=== PATIENT | male | born 1940 | race Caucasian/White ===

== ENCOUNTER 2018-05-21 00:28 | Outpatient (CLI) | payer MEDICARE, MEDICAID, SELFPAY ==
--- NOTE | 2018-05-21 12:59 | DI.CT_ITS ---
SYMPTOMS/DIAGNOSIS: RESTAGING LUNG CA, AP, SBRT, ELIZABETH, C34.[address]: Comparison is made with September,, from [facility]. There has been interval decrease in size of the previously noted left anterior upper lobe nodule, now with a diameter of 8 mm compared to 10 on the previous exam. A nodule seen slightly inferior to this level shows a significant decrease in size to 4 mm compared with 11 x 9 on the previous exam. There has been no significant change in a right lower lobe lesion, measured at 12 x 7 mm. No new abnormalities are identified. Severe underlying emphysematous changes are seen with a large bulla in both upper lobes, right greater than left. No pleural or pericardial effusions are seen. A small hiatal hernia, pneumobilia and right renal cysts are again noted. IMPRESSION: Overall interval decrease in size of previously noted pulmonary nodules. No new abnormalities are seen.
== END 2018-05-21 00:48 ==
PROVIDERS: PCP Nurse Practitioner Family; Visit Provider Radiology Radiation Oncology
DX: C34.12 Malignant neoplasm of upper lobe, left bronchus or lung (principal); J43.9 Emphysema, unspecified; R91.8 Other nonspecific abnormal finding of lung field
CPT/HCPCS: 71250

== ENCOUNTER 2019-01-10 01:08 | Outpatient (CLI) | payer MEDICARE, MEDICAID, SELFPAY ==
[2019-01-10 11:52] LABS: Abs Immature Grans 0.04 k/cumm (0.0-0.09); Absolute Basophil Count 0.02 k/cumm (0.0-0.2); Absolute Eosinophil Count 0.08 k/cumm (0.0-0.7); Absolute Lymphocyte Count 0.86 k/cumm (1.2-3.4); Absolute Monocyte Count 0.73 k/cumm (0.11-0.7); Absolute Neutrophil Count 7.19 k/cumm (1.2-6.7); Basophils % 0.2; Eosinophils % 0.9; HCT 51.5 % (40.0-50.0); HGB 16.5 g/dL (13.5-17.5); Immature Grans % 0.4; Lymphocytes % 9.6; Mean Corpuscular Hemoglobin 30.8 pg (27.0-33.0); Mean Corpuscular Volume 96.1 fL (80-95); Mean Platelet Volume 10.1 fL (8.0-11.0); Monocytes % 8.2; Neutrophils % 80.7; Platelet Count 176 x1000/uL (130-400); RBC 5.36 m/cumm (4.50-6.00); RBC Distribution Width 14.4 % (11.8-14.1); White Blood Cell Count 8.92 k/cumm (4.4-10.8)
--- NOTE | 2019-01-10 12:04 | DI.CT_ITS ---
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 There has been slight interval decrease vs stable size of previously noted nodule in the anterior left upper lobe, measuring 7 mm. The 4 mm nodule previously noted more inferiorly is no longer visible. The area of nodular scarring in the right lower lobe appears unchanged. No new abnormalities are seen. There is evidence of adenopathy, pleural or pericardial effusions or acute infiltrates. There are multi-focal areas of scarring. There are severe underlying emphysematous change of the large blebs in the upper lobes, right greater than left. The heart size is normal. Biliary air is again noted. There are right renal cysts. No suspicious bony lesions are identified. IMPRESSION: Stable size of bilateral pulmonary nodules. Severe underlying emphysematous change with large bullae.
[2019-01-10 12:09] LABS: ALT 23 U/L (12-78); AST 11 U/L (15-37); Albumin 3.1 g/dL (3.4-5.0); Alkaline Phosphatase 88 U/L (46-116); Anion Gap 9.5 mmol/L (3-11); BUN 21 mg/dL (7-18); Bilirubin, Total 0.9 mg/dL (0.2-1.0); CO2 29.5 mmol/L (21.0-32.0); Calcium 8.9 mg/dL (8.5-10.1); Chloride 103 mmol/L (98-107); Glucose 213 mg/dL (70-100); Potassium 4.2 mmol/L (3.5-5.1); Sodium 142 mmol/L (136-145); Total Protein 7.7 g/dL (6.4-8.2)
== END 2019-01-10 01:28 ==
PROVIDERS: PCP Nurse Practitioner Family; Visit Provider Nurse Practitioner
DX: C34.92 Malignant neoplasm of unspecified part of left bronchus or lung (principal); R91.8 Other nonspecific abnormal finding of lung field; J43.9 Emphysema, unspecified
CPT/HCPCS: 36415; 71250; 80053; 85025

== ENCOUNTER 2019-01-10 12:00 | Inpatient (IN) | payer MEDICARE, MEDICAID, SELFPAY ==
[2019-01-10] VITALS (45 sets, daily range): BP systolic 101–175; BP diastolic 39–115; PULSE 56–120; RESP 4–32; TEMP 36.5–36.9; O2SAT 93–98
--- NOTE | 2019-01-10 12:15 | ED.GENADUL_ITS ---
Discharge Plan Disposition Patient Disposition: [facility] INPATIENT Condition: Improving Discharge Details Chief Complaint: SOB Clinical Impression: COPD exacerbation, CO2 retention, SOB (shortness of breath) Primary Care Provider: [facility] Provider: Florencio Zaidi Home Meds and New Rx's Prescriptions: No Action simvastatin 10 mg Tablet 10 mg PO DAILY RF: 0 aspirin [Aspir-81] 81 mg Tablet,Delayed Release (Dr/Ec) 81 mg PO DAILY RF: 0 albuterol sulfate [Ventolin HFA] 90 mcg/actuation Hfa Aerosol Inhaler 2 puff INHALATION Q4H PRN PRNRF: 0 finasteride [Proscar] 5 mg Tablet 5 mg PO DAILY RF: 0 Symbicort 160-4.5 mcg/actuation Hfa Aerosol Inhaler 2 puff INHALATION DAILY RF: 0 Dexilant 60 mg Capsule,Biphase Delayed Releas 60 mg PO DAILY RF: 0 Medical Decision Making This is a 78-year-old male who is a notably poor historian who tells me he has no medical problems except for COPD, who infact has a history of severe COPD on 3-5 L of oxygen, history of a known pulmonary lesion that is being followed closely, previous AAA that has been successfully repaired, hypertension, high cholesterol, borderline diabetes, who was recently at [facility], discharged 2-1/2 weeks ago on steroids and Levaquin. He was admitted at that time for shortness of breath and COPD exacerbation. He has known history of chronic Pseudomonas colonization he was started on Levaquin for this. Patient states that when he finished his steroids and antibiotic 2 days ago he noticed a prompt return of his shortness of breath. He denies any history of PE or blood clot, stroke or heart attack. He denies any recent long trips, surgeries or procedures. Symptoms made worse with ambulation. He denies any chest pain, or chest heaviness. He denies any other complaints or modifying factors. Physical exam demonstrates coarse breath sounds throughout. He did get a CT scan noncontrast this morning for further evaluation of his chronic pulmonary nodule. Final read is not yet back. We will give duo nebs, steroids, evaluate for cardiac etiology although I feel that is less likely. Feels signs and symptoms are consistent with COPD. Currently on his 5 L he is not hypoxic at rest. We will do an ambulatory pulse ox and reassess. 1:26 PM On reassessment patient is doing somewhat better at this time. On 5 L of oxygen he appears stable, we did ambulate the patient roughly 15 to 20 feet where he had notable severe tachypnea, pursed breathing, and was very short of breath, however his oxygen status only got down to the low 90s. Took him a good 5 to 10 minutes to recuperate from that short event. Laboratory work-up is trickling back, no significant white count. D-dimer is elevated at 1000. Unable to age- adjusted. I did discuss CT imaging with the patient, he did have a Noncon CT today as part of his chronic work-up for his pulmonary nodule, but he has a allergy to contrast dye. The allergy the patient states was one time he had IV contrast and he felt short of breath. He had no rash, swelling, lesions, or other components. He states that at [place] he has since had a repeat CT scan with contrast with no problems whatsoever. We did discuss risks and benefits, including the further diagnostic capability but also potential reaction component, and the patient understands this. With no history of actual allergic reaction I do not feel that pretreatment is needed. Respecting the patient's request and with him fully understanding this the patient will be having CT scan to evaluate for any further pulmonary component. Including PE. 2:10 PM Rheumatoid work-up has returned, VBG demonstrates pH of 7.29, PCO2 is 66. Certainly does seem to count or take an acute component. Patient's oxygen remained stable at this time. CT scan with contrast demonstrates no evidence of pulmonary embolism per Dr. England. Notably severe emphysema, but no evidence of pneumothorax bleb or pneumonia. With the patient's notable work of breathing, as well as the acute component of his symptomatology, further supported by the VBG findings, we will start a mild trial of BiPAP. I do feel that admission is appropriate for the patient at this time. We will contact the hospitalist for this. 2:19 pm Discussed the case with Dr Merlos, he agrees with the assessment and plan. I have extensively reviewed the treatment plan with the patient. I have addressed all patient concerns at this time. I have also discussed the plan with the admitting physician and they agree with the current assessment and plan and have agreed to assume responsibility for the patient. All parties demonstrate verbal understanding and agreement with our assessment and plan at this time. EKG 1207 Rate would 15 [place] 142 QTc 440 QRS 88 sinus tachycardia, no significant ST elevations or depressions, mild PVCs, no significant Q waves. HPI General Date/Time Provider Initiated Documentation: 01/10/19 12:02 . HPI Narrative: This is a 78-year-old male with a past medical history of a AAA that was repaired in 2019 at [facility], severe COPD on 3-5 L of home oxygen regularly, chronic lung disease, history of lung cancer with a nodule in the left lung that is currently being regularly monitored with CT scans, high cholesterol, hypertension, borderline diabetes, who presents today for evaluation of shortness of breath. Roughly 2-1/2 weeks ago the patient was admitted to [facility] for shortness of breath and exacerbation of his chronic COPD. He was evaluated for a life 2000 device but unfortunately did not qualify secondary to power restrictions at his, and discharged with 14 days of steroids with taper, and Levaquin secondary to previous and chronic Pseudomonas colonization. He denies any previous intubation for his COPD. Patient states that he was doing well until his steroids and Levaquin stopped 2 days ago. Since then he has been notably short of breath. He denies any fever, or chills. He does have a chronic nonproductive cough. He denies any chest pain, chest heaviness, chest tightness. He denies any vomiting or diarrhea. He denies any other significant medication changes. He did have a negative CT perfusion and nuclear stress testing as performed last year which demonstrated no evidence of ischemic component, and no evidence of severe heart failure. Patient denies any recent weight gain or significant swelling. He denies any pain in his abdomen or his legs. He denies any weakness in his legs he denies any other complaints at this time. No other modifying factors. Related Data Home Medications Medication Instructions Recorded Confirmed albuterol sulfate [Ventolin HFA] 2 puff INHALATION Q4H PRN PRN 01/10/19 01/10/19 aspirin [Aspir-81] 81 mg PO DAILY 01/10/19 01/10/19 budesonide-formoterol [Symbicort] 2 puff INHALATION DAILY 01/10/19 01/10/19 dexlansoprazole [Dexilant] 60 mg PO DAILY 01/10/19 01/10/19 finasteride [Proscar] 5 mg PO DAILY 01/10/19 01/10/19 simvastatin 10 mg PO DAILY 01/10/19 01/10/19 Allergies Allergy/AdvReac Type Severity Reaction Status Date / Time fluticasone Allergy Unverified 01/10/19 12:29 [From Advair Diskus] Iodinated Contrast- Oral and Allergy Unverified 01/10/19 12:29 IV Dye salmeterol Allergy Unverified 01/10/19 12:29 [From Advair Diskus] General Stated Complaint: SOB KYLIE: 2 Review of Systems Review of Systems All systems reviewed & are unremarkable except as noted in HPI and below PFSH Medical History BPH (benign prostatic hyperplasia) (Chronic) COPD (chronic obstructive pulmonary disease) (Chronic) GERD (gastroesophageal reflux disease) (Chronic) Hypercholesteremia (Acute) Surgical History (Updated 01/10/19 @ 12:35 by Florencio Zaidi DO) S/P AAA repair (Acute) Social History Smoking/Tobacco Use Status: Former Tobacco Use Alcohol Intake: never Substance use type: does not use Do you feel safe at home: Yes Do you feel safe in your relationship?: Yes Exam Narrative Exam Narrative: 1.Const: Well-nourished, Well-developed, appearing stated age 2.Eyes: PERRL, no conjunctival injection, and symmetrical lids. 3.ENT: Atraumatic external nose and ears. Moist MM. Neck: Symmetric, trachea midline, No thyromegaly. 4.CVS: +S1/S2, No murmurs or gallops. Peripheral pulses 2+ and equal in all extremities. Brisk capillary refill in all extremities. 5.RESP: Unlabored respiratory effort. Decreased respiration throughout, coarse breath sounds throughout. Coarseness is equal bilaterally. 6.GI: Soft, Nontender/Nondistended, No hepatosplenomegaly. No guarding or rebound. No pulsatile abdominal mass. 7.MSK: Normocephalic/Atraumatic, Extremities w/o deformity or ttp No cyanosis or clubbing, Normal movement of all extremities. No significant pitting edema. 8.Skin: Warm, Dry. No rashes or lesions. 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 Sensation grossly intact, no focal neurologic deficits. 10.Psych: (AAO) x3. Appropriate mood and affect Course Vital Signs Temperature 36.9 C 01/10/19 12:05 Pulse 110 H 01/10/19 12:05 Respiratory Rate 28 H 01/10/19 12:05 Blood Pressure 175/77 H 01/10/19 12:05 Pulse Oximetry 96 01/10/19 12:05 Temperature 36.9 C 01/10/19 12:05 Temperature Source Temporal Artery Scan 01/10/19 12:05 Pulse 110 H 01/10/19 12:05 Respiratory Rate 28 H 01/10/19 12:05 Respiratory Effort Tripod 01/10/19 12:05 Blood Pressure 175/77 H 01/10/19 12:05 Pulse Oximetry 96 01/10/19 12:05 Oxygen Delivery Method Nasal Cannula 01/10/19 12:05 Oxygen Flow Rate 5 01/10/19 12:05
[2019-01-10] MEDS: methylPREDNISolone SUCC 125 MG VIAL (12:22)
[2019-01-10] MEDS: Albuterol/Ipratropium 3 ML UPD VIAL 9 ML UPD (12:22)
[2019-01-10 12:27] LABS: Abs Immature Grans 0.07 k/cumm (0.0-0.09); Absolute Basophil Count 0.01 k/cumm (0.0-0.2); Absolute Eosinophil Count 0.38 k/cumm (0.0-0.7); Absolute Monocyte Count 0.72 k/cumm (0.11-0.7); Absolute Neutrophil Count 6.34 k/cumm (1.2-6.7); Basophils % 0.1; Eosinophils % 4.6; HCT 52.9 % (40.0-50.0); HGB 16.6 g/dL (13.5-17.5); Immature Grans % 0.8; Lymphocytes % 9.6; Mean Corp. HGB Concentration 31.4 g/dL (32.0-36.0); Mean Corpuscular Hemoglobin 30.4 pg (27.0-33.0); Mean Corpuscular Volume 96.9 fL (80-95); Mean Platelet Volume 10.9 fL (8.0-11.0); Monocytes % 8.7; Neutrophils % 76.2; Platelet Count 159 x1000/uL (130-400); RBC 5.46 m/cumm (4.50-6.00); RBC Distribution Width 14.5 % (11.8-14.1); White Blood Cell Count 8.32 k/cumm (4.4-10.8)
--- NOTE | 2019-01-10 12:45 | NUR.NOTE ---
pt ambulatoed on 5l n/c 02 spo2 dropped to 94% at lowest maintianed at 97% pt denied an increased work of breathing although after amulatory at rest pt apeared to have increased resp rate and depth of breathing pt placed back on cardaic monitor after trial md made aware of pt results md at bedside for eval Nursing Note:
[2019-01-10 12:47] LABS: PTT Activated 19.7 sec (21.0-31.4); Prothrombin Time 9.9 sec (9.3-11.0)
[2019-01-10 13:04] LABS: D-Dimer 997 ng/mlFEU (<500)
--- NOTE | 2019-01-10 13:21 | DI.CT_ITS ---
SYMPTOMS/DIAGNOSIS: SHORTNESS OF BREATH, LUNG NODULES, ELEVATED D DIMER CTA FOR PULMONARY EMBOLISM: CT angiography was performed with multi slice acquisition and multi planar and 3D reconstruction. The pulmonary arteries are well opacified with IV contrast. No pulmonary emboli or aortic dissection is seen. There are pleural or pericardial effusions or acute infiltrates. There is severe underlying emphysematous change with large apical bullae, right greater than left. A 7 mm spiculated nodule is noted in the left upper lobe. There is also an area of linear spiculation in the right lower lobe. IMPRESSION: No evidence of pulmonary emboli. Stable pulmonary nodules.
[2019-01-10 13:27] LABS: ALT 23 U/L (12-78); AST 21 U/L (15-37); Albumin 2.9 g/dL (3.4-5.0); Alkaline Phosphatase 80 U/L (46-116); Anion Gap 5.7 mmol/L (3-11); BUN 22 mg/dL (7-18); Bilirubin, Total 0.9 mg/dL (0.2-1.0); CO2 33.3 mmol/L (21.0-32.0); CREATININE 1.18 mg/dL (0.70-1.30); Calcium 8.8 mg/dL (8.5-10.1); Chloride 103 mmol/L (98-107); Estimated GFR 59.55 (mL/min/1.73m2); Glucose 123 mg/dL (70-100); NT-proBNP 444 pg/mL; Potassium 4.9 mmol/L (3.5-5.1); Sodium 142 mmol/L (136-145); TSH (W/Ref FT4) 0.64 uIU/mL (0.36-3.74); Total Protein 7.5 g/dL (6.4-8.2)
[2019-01-10 13:28] LABS: Troponin I < 0.05 ng/mL (0.00-0.06)
[2019-01-10] MEDS: Omnipaque 350 MG/ML 100 ML BTL IJ (13:53)
[2019-01-10 13:58] LABS: BE (Venous) 5.1 mmol/L (-3-3); HCO3 (Venous) 32 mmol/L (22-28); O2 Sat (Venous) 64 % (70-80); TCO2 (Venous) 29 mmol/L (22-29); pH (Venous) 7.29 (7.32-7.43); pO2 (Venous) 37 mm/Hg (28-44)
[2019-01-10 14:05] LABS: pCO2 (Venous) 66 mm/Hg (34-47)
[2019-01-10] MEDS: Albuterol/Ipratropium 3 ML UPD VIAL (14:22)
[2019-01-10] MEDS: Albuterol/Ipratropium 3 ML UPD VIAL UPD ×2 (14:31→19:59)
--- NOTE | 2019-01-10 15:07 | HPE_ITS ---
Date of service: 01/10/19 Time of Service: 15:07 Assessment and Plan (1) COPD with acute exacerbation: Current visit: Yes Status: Acute Appears to be Severe COPD with Bullae by imaging. Recent hospitalizations and pseudomonas colonization. Mr. Mendez has undergone 2 recent and prolonged courses of antibiotic therapy (Pip-Jamarcus & Levofloxacin), along with lengthy steroid tapers. - CT reviewed and no evidence of infiltrates. Patient also without sputum production. Will hold off antibiotic therapy for now. - Initiate high dose IV Steroids, and maintain on frequent and standing duonebs, prn Xopenex, and Q12 inhaled Budesonide. - BiPAP as needed for comfort. - Monitor symptoms closely. (2) Bullous emphysema: Current visit: Yes Status: Acute (3) AAA (abdominal aortic aneurysm): Current visit: Yes Status: Acute S/p reported EVAR in 2016. On daily ASA, Statin. (4) Macular degeneration: Current visit: Yes Noted. (5) Lung nodule: Current visit: Yes Status: Acute 7 mm spiculated nodule in the ELIZABETH, and noted area of linear spiculation RLL. Following chronically and under surveillance and treatment. (6) DVT prophylaxis: Current visit: Yes Status: Acute SC Lovenox. (7) Advance directive on file: Current visit: Yes Status: Acute Full Code. History of Present Illness Chief Complaint: Dyspnea Narrative: 78 year old man with prior history of severe bullous Emphysema, being admitted from [facility] Emergency Department on 01/10 with a diagnosis of acute COPD Exacerbation. Mr. Mendez has a past history of Oxygen depended Significant Bullous COPD, with multiple previous hospitalizations including both in November and earlier this month at [facility]. His other history includes AAA s/p Endovascular Aneurysm Repair in 2016, kidney stones, Cataracts s/p extraction, GERD, and prior acute Cholangitis secondary to Gallstones. 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 The patient receives his care at [facility] in [facility] - hospitalized at [facility] between December 05 and again on the 01-27 of this month. He was treated with antibiotics, including Pip-Jamarcus in November and Levofloxacin earlier this month due to Pseudomonas Colonization, and was found to have a potential opacity by CT of the chest during his last hospitalization. He was also treated with steroid therapy. In fact, he just completed a 14 day course of treatment with both Levaquin and prednisone, and the day following completion began to experience worsening SOB. He denies any change in cough or any new sputum production, but is now severely dyspneic with minimal movement and despite 5L of home oxygen therapy. The patient had initially presented for his routine screening CT, but was so dyspneic that he was referred to the ED for evaluation. A repeat CTA was performed, and without evidence of PE, dissection, or infiltrate. His labs were essentially unremarkable, as was his ABG follow-up to original VBG. He was treated with IV Steroids and BiPAP for increased work of breathing. Given his worsening dyspnea and increased Oxygen requirement he was referred for admission for further evaluation and treatment. Review of Systems Review of Systems All systems reviewed & are unremarkable except as noted in HPI and below PFSH Medical History (Updated 01/10/19 @ 15:24 by Waqar Merlos MD) AAA (abdominal aortic aneurysm) (Acute) BPH (benign prostatic hyperplasia) (Chronic) Bullous emphysema (Acute) COPD (chronic obstructive pulmonary disease) (Chronic) GERD (gastroesophageal reflux disease) (Chronic) History of acute cholangitis (Acute) History of kidney stones (Acute) Hypercholesteremia (Acute) Lung nodule (Acute) Macular degeneration (Acute) Surgical History (Updated 01/10/19 @ 12:35 by Florencio Zaidi DO) S/P AAA repair (Acute) Social History (Updated 01/10/19 @ 15:38 by Waqar Merlos MD) Smoking/Tobacco Use Status: Former Tobacco Use Alcohol Intake: never Substance use type: does not use Do you feel safe at home: Yes Do you feel safe in your relationship?: Yes Additional Social history: Patient is a former podiatrist assistant, now retired. Prior alcohol reported, none currently. Quit tobacco 2 years ago, with with an approximate 120 pack-year history of smoking. Meds Home Medications Medication Instructions Recorded Confirmed Type albuterol sulfate [Ventolin HFA] 2 puff INHALATION Q4H PRN PRN 01/10/19 01/10/19 History aspirin [Aspir-81] 81 mg PO DAILY 01/10/19 01/10/19 History budesonide-formoterol [Symbicort] 2 puff INHALATION DAILY 01/10/19 01/10/19 History dexlansoprazole [Dexilant] 60 mg PO DAILY 01/10/19 01/10/19 History finasteride [Proscar] 5 mg PO DAILY 01/10/19 01/10/19 History simvastatin 10 mg PO DAILY 01/10/19 01/10/19 History Allergies Allergy/AdvReac Type Severity Reaction Status Date / Time fluticasone Allergy Unverified 01/10/19 12:29 [From Advair Diskus] salmeterol Allergy Unverified 01/10/19 12:29 [From Advair Diskus] Exam Narrative Exam Narrative: General: Patient appears tachypneic but comfortable, currently on BiPAP. AAOX3, NAD Neck: Supple CV: Regular, nontachycardic, S1S2, No rubs, murmurs, or gallops. Pulmonary: Significantly decreased breath sounds bilaterally, trace diffuse w heezing, mild rhochi Abdomen: + Bowel Sounds, soft, nontender, nondistended Vascular: No lower extremity edema Neurologic: CN II-XII grossly intact. No focal deficits. Psych: Normal mood and affect. Results Labs : 01/10/19 12:15 01/10/19 12:58 Laboratory Results - last 24 hr 01/10/19 01/10/19 01/10/19 12:15 12:15 12:15 WBC 8.32 RBC 5.46 Hgb 16.6 Hct 52.9 H MCV 96.9 H MCH 30.4 MCHC 31.4 L RDW 14.5 H Plt Count 159 MPV 10.9 Immature Gran % 0.8 Neutrophils % 76.2 Lymphocytes % 9.6 Monocytes % 8.7 Eosinophils % 4.6 Basophils % 0.1 Absolute Neutrophils 6.34 Absolute Lymphocytes 0.80 L Absolute Monocytes 0.72 H Absolute Eosinophils 0.38 Absolute Basophils 0.01 PT 9.9 INR 1.0 APTT 19.7 L D-Dimer 997 H VBG pH VBG pCO2 VBG pO2 VBG HCO3 VBG Total CO2 VBG O2 Saturation VBG Base Excess Sodium Cancelled Potassium Cancelled Chloride Cancelled Carbon Dioxide Cancelled Anion Gap Cancelled BUN Cancelled Creatinine Cancelled Estimated GFR/1.73 m2 Cancelled Glucose Cancelled Calcium Cancelled Total Bilirubin Cancelled AST Cancelled ALT Cancelled Alkaline Phosphatase Cancelled Troponin I Cancelled NT-Pro-B Natriuret Pep Cancelled Total Protein Cancelled Albumin Cancelled TSH Cancelled 01/10/19 01/10/19 12:58 13:20 WBC RBC Hgb Hct MCV MCH MCHC RDW Plt Count MPV Immature Gran % Neutrophils % Lymphocytes % Monocytes % Eosinophils % Basophils % Absolute Neutrophils Absolute Lymphocytes Absolute Monocytes Absolute Eosinophils Absolute Basophils PT INR APTT D-Dimer VBG pH 7.29 L VBG pCO2 66 H VBG pO2 37 VBG HCO3 32 H VBG Total CO2 29 VBG O2 Saturation 64 L VBG Base Excess 5.1 H Sodium 142 Potassium 4.9 Chloride 103 Carbon Dioxide 33.3 H Anion Gap 5.7 BUN 22 H Creatinine 1.18 Estimated GFR/1.73 m2 59.55 Glucose 123 H D Calcium 8.8 Total Bilirubin 0.9 AST 21 ALT 23 Alkaline Phosphatase 80 Troponin I < 0.05 NT-Pro-B Natriuret Pep 444 H Total Protein 7.5 Albumin 2.9 L TSH 0.64 Last Vital Signs Temp 36.9 C 01/10/19 12:05 Pulse 93 H 01/10/19 14:31 Resp 19 01/10/19 14:31 BP 175/77 H 01/10/19 12:05 Pulse Ox 95 01/10/19 14:31
[2019-01-10 15:29] LABS: BE 4.1 mmol/L (-3-3); HCO3 29 mmol/L (22-28); pCO2 51 mmHg (34-47); pO2 83 mmHg (83-108); sO2 96 % (94-98); tCO2 26 mmol/L (22-29)
[2019-01-10] MEDS: Enoxaparin 40 MG/0.4 ML SYR SC ×2 (15:31→18:50)
[2019-01-10 15:32] LABS: FIO2 30 %; Site Right Radial
[2019-01-10 15:33] LABS: pH 7.37 (7.35-7.45)
--- NOTE | 2019-01-10 15:59 | NUR.NOTE ---
pt resting in bed on bipap machine tolorating current settings well resp even unlabored no distress noted none stated Nursing Note:
[2019-01-10] MEDS: Budesonide 0.5 MG/2 ML UPD VIAL UPD (18:49)
[2019-01-10] MEDS: Pantoprazole 40 MG VIAL IVP (18:49)
[2019-01-10] MEDS: Normal Saline Flush 10 ML SYR ×2 (18:52→22:15)
[2019-01-10] MEDS: Simvastatin 10 MG TAB PO (20:00)
[2019-01-10] MEDS: methylPREDNISolone SUCC 125 MG VIAL 60 MG IVP (22:14)
[2019-01-11] VITALS (14 sets, daily range): BP systolic 121–139; BP diastolic 29–74; PULSE 64–97; RESP 4–21; TEMP 35.7–36.7; O2SAT 94–98
[2019-01-11] MEDS: Albuterol/Ipratropium 3 ML UPD VIAL UPD ×5 (04:57→20:37)
[2019-01-11] MEDS: methylPREDNISolone SUCC 125 MG VIAL 60 MG IVP ×3 (05:02→22:20)
[2019-01-11] MEDS: Normal Saline Flush 10 ML SYR ×2 (05:02→13:49)
[2019-01-11] MEDS: Budesonide 0.5 MG/2 ML UPD VIAL UPD ×2 (05:03→17:34)
[2019-01-11 07:53] LABS: Anion Gap 5.3 mmol/L (3-11); BUN 20 mg/dL (7-18); CO2 31.7 mmol/L (21.0-32.0); Chloride 100 mmol/L (98-107); Glucose 180 mg/dL (70-100); Magnesium 2.2 mg/dL (1.8-2.4); Potassium 4.6 mmol/L (3.5-5.1); Sodium 137 mmol/L (136-145)
[2019-01-11 07:57] LABS: Abs Immature Grans 0.03 k/cumm (0.0-0.09); Absolute Lymphocyte Count 0.26 k/cumm (1.2-3.4); Absolute Monocyte Count 0.14 k/cumm (0.11-0.7); Absolute Neutrophil Count 5.69 k/cumm (1.2-6.7); HCT 46.4 % (40.0-50.0); HGB 14.9 g/dL (13.5-17.5); Immature Grans % 0.5; Lymphocytes % 4.2; Mean Corp. HGB Concentration 32.1 g/dL (32.0-36.0); Mean Corpuscular Hemoglobin 30.4 pg (27.0-33.0); Mean Corpuscular Volume 94.7 fL (80-95); Mean Platelet Volume 10.1 fL (8.0-11.0); Monocytes % 2.3; Platelet Count 199 x1000/uL (130-400); RBC Distribution Width 13.9 % (11.8-14.1); White Blood Cell Count 6.12 k/cumm (4.4-10.8)
[2019-01-11] MEDS: Aspirin E.C. 81 MG TABEC PO (08:07)
[2019-01-11] MEDS: Dexlansoprazole 30 MG CAP 60 MG PO (08:07)
[2019-01-11] MEDS: Finasteride 5 MG TAB PO (08:07)
[2019-01-11 08:11] LABS: Procalcitonin < 0.1 ng/mL
--- NOTE | 2019-01-11 09:54 | PDOC.CMIN ---
- If Service Date Differs Date of service: 01/11/19 Time of Service: 09:54 Care Management Initial Assess REASON FOR HOSPITALIZATION:: COPD Exacerbation PAST MEDICAL HISTORY/PAST SURGICAL HISTORY:: Medical History: AAA (abdominal aortic aneurysm) (Acute). BPH (benign prostatic hyperplasia) (Chronic). Bullous emphysema (Acute). COPD (chronic obstructive pulmonary disease) (Chronic). GERD (gastroesophageal reflux disease) (Chronic). History of acute cholangitis (Acute). History of kidney stones (Acute). Hypercholesteremia (Acute). Lung nodule (Acute). Macular degeneration (Acute). Surgical History: S/P AAA repair (Acute) PREVIOUS FUNCTIONAL STATUS/SOCIAL/FAMILY SUPPORTS:: Ross lives in a single family home in [place], [place] with his and son. He has one other son who is also unmarried. No grandchildren. Maik is independent with all activities and ADLs. Because of macular degeneration, he states he can no longer cook or engage in some of the activities he used to enjoy. He states his is a great cook though and also has beautiful flower gardens. CURRENT FUNCTIONAL STATUS:: Ross was sitting up in bed when CM came to see him. He was pleasant and cooperative and engaged readily in conversation. He stated that he has been hospitalized 3 other times in the past few months for respiratory issues. All of the other admissions were at [facility]. He shared that he felt the care at [facility] was much better.He came to [facility] for a CT scan and felt ill and decided to go to the ED, which is how he came to be admitted here. He states he is feeling better already. He is on 3-5 L of nasal oxygen at home but receives no other services. ADVANCE DIRECTIVES:: None on file at [facility] Has patient been provided with information about the portal?: No Did the patient sign up for the portal?: No CODE STATUS:: Full Code INSURANCE COVERAGE / FINANCIAL ISSUES:: [employer]. Medicaid CURRENT HOME/COMMUNITY SERVICES/EQUIPMENT:: Home oxygen PRIMARY CARE PHYSICIAN:: None locally POTENTIAL DISCHARGE NEEDS:: Follow up with PCP and discharge plan of care PATIENT/FAMILY EDUCATION NEEDS:: Discharge plan, limitations, follow up plan, Ask Me Three. ANTICIPATED BARRIERS TO DISCHARGE:: none identified TRANSPORTATION:: via private vehicle with family when ready PLAN:: Ross is receiving supportive treatment for a COPD exacerbation. He will likely return home with no new services and a resumption of his home oxygen. he will follow up with his PCP and discharge plan of care. CM will continue to provide support to patient, family and identified discharge concerns and issues.
[2019-01-11] MEDS: Thiamine 100 MG TAB PO (12:40)
--- NOTE | 2019-01-11 15:11 | W.PM.PROGNOT ---
Date of Service Date of service: 01/11/19 Time of Service: 15:12 Assessment and Plan (1) COPD with acute exacerbation: Current visit: Yes Status: Acute At baseline, Severe COPD with Bullae. H/o pseudomonas colonization, 2 recent courses of antibiotics (Pip-Jamarcus & Levofloxacin), along with lengthy steroid tapers. - No evidence of acute infection now (procalcitonin/imaging negative). - Continue current dose of IV Steroids, duonebs, prn Xopenex, and Q12 inhaled Budesonide. - BiPAP as needed for comfort. (2) Bullous emphysema: Current visit: Yes Status: Acute As above (3) AAA (abdominal aortic aneurysm): Current visit: Yes Status: Acute S/p reported EVAR in 2016. On daily ASA, Statin. Follow up as outpatient. (4) Macular degeneration: Current visit: Yes Follow up as outpatient (5) Lung nodule: Current visit: Yes Status: Acute 7 mm spiculated nodule in the [facility], and noted area of linear spiculation RLL. Follow up as outpatient (6) DVT prophylaxis: Current visit: Yes Status: Acute SC Lovenox. (7) Advance directive on file: Current visit: Yes Status: Acute Full Code. Subjective Interval history since last seen: Mr Capone states he is feeling better than yesterday - specifically, he is less short of breath. Denies dizziness, chest pain, nausea/vomiting. Cough was productive just once today, but hasn't been since. Exam Narrative Exam Narrative: General: very pleasant elderly male, A&Ox3, pursed lip breathing while talking to me, appears mildly tachypneic HEENT: EOMI, MMM Heart: RRR, no m/r/g Lungs; wheezing on expiration B GI: abdomen is soft, nontender, nondistended Extremities: no e/c/c BLE's Objective Objective Clinical Data: Abnormal lab results 01/10/19 01/11/19 01/11/19 Range/Units 15:32 07:00 07:00 Absolute Lymphocytes 0.26 L (1.2-3.4) k/cumm pCO2 51 H (34-47) mmHg ABG HCO3 29 H (22-28) mmol/L ABG Base Excess 4.1 H (-3-3) mmol/L BUN 20 H (7-18) mg/dL Glucose 180 H (70-100) mg/dL Vital Signs Temperature 36.3 C L 01/11/19 13:50 Temperature Source Tympanic 01/11/19 13:50 Pulse 67 01/11/19 13:50 Pulse Rhythm Irregular 01/11/19 08:00 Pulse 88 01/10/19 15:45 Respiratory Rate 20 01/11/19 13:50 Respiratory Effort Labored 01/11/19 08:00 Respiratory Depth Deep 01/11/19 08:00 Respiratory Pattern Tachypnea 01/11/19 08:00 Blood Pressure 139/58 L 01/11/19 13:50 Blood Pressure Mean 73 01/10/19 15:45 Pulse Oximetry 96 01/11/19 13:50 Oxygen Delivery Method Nasal Cannula 01/11/19 13:50 Oxygen Flow Rate 4 01/11/19 13:50 Fraction of Inspired Oxygen (FIO2) 30 01/10/19 14:31 Pain Level 0 01/11/19 08:00 Intake & Output 01/10/19 01/11/19 01/11/19 23:59 11:59 23:59 Intake Total 1210 / 1450 240 / 1450 Output Total 400 / 400 625 / 1375 750 / 1375 Balance -400 / -400 585 / 75 -510 / 75 Weight 64.7 kg Intake: IV 10 Oral 1200 / 1440 240 / 1440 Output: Urine 400 / 400 625 / 1375 750 / 1375 Other: Urine Color Straw Light Mikki Yellow Light Mikki Urine Appearance Clear Clear Clear Urine Odor Normal Normal None Voiding Methods Urinal Urinal Urinal Laboratory Results WBC 6.12 k/cumm (4.4-10.8) 01/11/19 07:00 RBC 4.90 m/cumm (4.50-6.00) 01/11/19 07:00 Hgb 14.9 g/dL (13.5-17.5) 01/11/19 07:00 Hct 46.4 % (40.0-50.0) 01/11/19 07:00 MCV 94.7 fL (80-95) 01/11/19 07:00 MCH 30.4 pg (27.0-33.0) 01/11/19 07:00 MCHC 32.1 g/dL (32.0-36.0) 01/11/19 07:00 RDW 13.9 % (11.8-14.1) 01/11/19 07:00 Plt Count 199 x1000/uL (130-400) 01/11/19 07:00 MPV 10.1 fL (8.0-11.0) 01/11/19 07:00 Immature Gran % 0.5 01/11/19 07:00 93.0 01/11/19 07:00 4.2 01/11/19 07:00 2.3 01/11/19 07:00 0.0 01/11/19 07:00 0.0 01/11/19 07:00 Absolute Neutrophils 5.69 k/cumm (1.2-6.7) 01/11/19 07:00 Absolute Lymphocytes 0.26 k/cumm (1.2-3.4) L 01/11/19 07:00 Absolute Monocytes 0.14 k/cumm (0.11-0.7) 01/11/19 07:00 Absolute Eosinophils 0.00 k/cumm (0.0-0.7) 01/11/19 07:00 Absolute Basophils 0.00 k/cumm (0.0-0.2) 01/11/19 07:00 PT 9.9 sec (9.3-11.0) 01/10/19 12:15 INR 1.0 (0.9-1.1) 01/10/19 12:15 APTT 19.7 sec (21.0-31.4) L 01/10/19 12:15 997 ng/mlFEU (<500) H 01/10/19 12:15 Sample Site Right radial 01/10/19 15:32 pCO2 51 mmHg (34-47) H 01/10/19 15:32 pO2 83 mmHg (83-108) 01/10/19 15:32 O2 Saturation 96 % (94-98) 01/10/19 15:32 ABG pH 7.37 (7.35-7.45) 01/10/19 15:32 ABG HCO3 29 mmol/L (22-28) H 01/10/19 15:32 ABG Total CO2 26 mmol/L (22-29) 01/10/19 15:32 ABG Base Excess 4.1 mmol/L (-3-3) H 01/10/19 15:32 VBG pH 7.29 (7.32-7.43) L 01/10/19 13:20 VBG pCO2 66 mm/Hg (34-47) H 01/10/19 13:20 VBG pO2 37 mm/Hg (28-44) 01/10/19 13:20 VBG HCO3 32 mmol/L (22-28) H 01/10/19 13:20 VBG Total CO2 29 mmol/L (22-29) 01/10/19 13:20 VBG O2 Saturation 64 % (70-80) L 01/10/19 13:20 VBG Base Excess 5.1 mmol/L (-3-3) H 01/10/19 13:20 30 % 01/10/19 15:32 Sodium 137 mmol/L (136-145) 01/11/19 07:00 Potassium 4.6 mmol/L (3.5-5.1) 01/11/19 07:00 Chloride 100 mmol/L (98-107) 01/11/19 07:00 Carbon Dioxide 31.7 mmol/L (21.0-32.0) 01/11/19 07:00 5.3 mmol/L (3-11) 01/11/19 07:00 BUN 20 mg/dL (7-18) H 01/11/19 07:00 1.00 mg/dL (0.70-1.30) 01/11/19 07:00 >= 60.00 (mL/min/1.73m2) 01/11/19 07:00 Glucose 180 mg/dL (70-100) H 01/11/19 07:00 Calcium 9.0 mg/dL (8.5-10.1) 01/11/19 07:00 Magnesium 2.2 mg/dL (1.8-2.4) 01/11/19 07:00 0.9 mg/dL (0.2-1.0) 01/10/19 12:58 AST 21 U/L (15-37) 01/10/19 12:58 ALT 23 U/L (12-78) 01/10/19 12:58 80 U/L (46-116) 01/10/19 12:58 < 0.05 ng/mL (0.00-0.06) 01/10/19 12:58 NT-Pro-B Natriuret Pep 444 pg/mL (-299) H 01/10/19 12:58 7.5 g/dL (6.4-8.2) 01/10/19 12:58 2.9 g/dL (3.4-5.0) L 01/10/19 12:58 < 0.1 ng/mL 01/11/19 07:00 TSH 0.64 uIU/mL (0.36-3.74) 01/10/19 12:58
[2019-01-11] MEDS: Enoxaparin 40 MG/0.4 ML SYR SC (17:34)
[2019-01-11] MEDS: Simvastatin 10 MG TAB PO (20:40)
[2019-01-12] VITALS (16 sets, daily range): BP systolic 113–138; BP diastolic 65–76; PULSE 85–99; RESP 2–22; TEMP 36.1–36.8; O2SAT 88–98
[2019-01-12] MEDS: Albuterol/Ipratropium 3 ML UPD VIAL UPD ×6 (03:45→23:12)
[2019-01-12] MEDS: Normal Saline Flush 10 ML SYR IVP ×3 (06:05→21:16)
[2019-01-12] MEDS: methylPREDNISolone SUCC 125 MG VIAL 60 MG IVP (06:06)
[2019-01-12] MEDS: Budesonide 0.5 MG/2 ML UPD VIAL UPD ×2 (06:06→17:32)
[2019-01-12] MEDS: Dexlansoprazole 30 MG CAP 60 MG PO (07:24)
[2019-01-12 08:07] LABS: Abs Immature Grans 0.06 k/cumm (0.0-0.09); Absolute Lymphocyte Count 0.24 k/cumm (1.2-3.4); Absolute Monocyte Count 0.67 k/cumm (0.11-0.7); Basophils % 0.1; HGB 14.5 g/dL (13.5-17.5); Immature Grans % 0.3; Lymphocytes % 1.2; Mean Corp. HGB Concentration 32.2 g/dL (32.0-36.0); Mean Corpuscular Hemoglobin 30.7 pg (27.0-33.0); Mean Corpuscular Volume 95.1 fL (80-95); Mean Platelet Volume 10.4 fL (8.0-11.0); Monocytes % 3.4; Platelet Count 200 x1000/uL (130-400); RBC 4.73 m/cumm (4.50-6.00); White Blood Cell Count 19.77 k/cumm (4.4-10.8)
[2019-01-12 08:12] LABS: Absolute Basophil Count 0.02 k/cumm (0.0-0.2); Absolute Neutrophil Count 18.78 k/cumm (1.2-6.7)
[2019-01-12] MEDS: Aspirin E.C. 81 MG TABEC PO (08:26)
[2019-01-12] MEDS: Finasteride 5 MG TAB PO (08:26)
[2019-01-12] MEDS: Folic Acid 1 MG TAB PO (08:26)
[2019-01-12] MEDS: Thiamine 100 MG TAB PO (08:26)
[2019-01-12] MEDS: Multivitamin TAB 1 TAB PO (08:26)
[2019-01-12 08:32] LABS: BUN 28 mg/dL (7-18); CREATININE 1.01 mg/dL (0.70-1.30); Calcium 8.5 mg/dL (8.5-10.1); Chloride 98 mmol/L (98-107); Glucose 202 mg/dL (70-100); Magnesium 2.1 mg/dL (1.8-2.4); Potassium 5.4 mmol/L (3.5-5.1); Sodium 135 mmol/L (136-145)
--- NOTE | 2019-01-12 10:41 | CMPROGNOTE_ITS ---
- If Service Date Differs Date of service: 01/12/19 Time of Service: 10:41 Care Management Progress Note S/O: Ross was sitting up in bed during CM visit. He was opn and friendly and readily engaged with CM. Ross is feeling much, much better he asserts. He states he hopes to be able to go home soon, but understands that these things take time and he doesn't want to salazar it. Ross talked fondly about his again today. He states that it took him a while to get , but he took his time and found a good woman. They have been for 40 years. Respiratory Therapy has been working with Ross to try to get him set up with the [facility]. There are some electrical issues and missing smoke detectors in his home that need to be addressed before the unit can be brought in. CM will work with community resources tomorrow to try to get this taken care of. A: Ross is a 78 year old gentleman admitted to [facility] on 01/10/19 with a diagnosis of COPD exacerbation P:Ross is receiving supportive treatment for a COPD exacerbation. He will likely return home with no new services and a resumption of his home oxygen. he will follow up with his PCP and discharge plan of care. CM will continue to provide support to patient, family and identified discharge concerns and issues.
[2019-01-12] MEDS: methylPREDNISolone SUCC 40 MG VIAL IVP ×2 (14:17→21:16)
[2019-01-12 14:57] LABS: Anion Gap 4.6 mmol/L (3-11); BUN 30 mg/dL (7-18); CO2 31.4 mmol/L (21.0-32.0); CREATININE 1.29 mg/dL (0.70-1.30); Calcium 8.9 mg/dL (8.5-10.1); Chloride 98 mmol/L (98-107); Estimated GFR 53.73 (mL/min/1.73m2); Glucose 295 mg/dL (70-100); Potassium 5.3 mmol/L (3.5-5.1); Sodium 134 mmol/L (136-145)
--- NOTE | 2019-01-12 15:04 | W.PM.PROGNOT ---
Date of Service Date of service: 01/12/19 Time of Service: 15:04 Assessment and Plan (1) COPD with acute exacerbation: Current visit: Yes Status: Acute Improving. At baseline, Severe COPD with Bullae. H/o pseudomonas colonization, 2 recent courses of antibiotics (Pip-Jamarcus & Levofloxacin), along with lengthy steroid tapers. - No evidence of acute infection now (procalcitonin/imaging negative). - Start to taper steroids; continue scheduled duonebs, prn Xopenex, and Q12 inhaled Budesonide. - BiPAP as needed for comfort. The patient was apparently approved for Life 2000 via [employer] - however, his home does not have grounded outlets or smoke detectors. Will speak with care managers about any community resources that might be available to help fix the electrical situation at home so that the patient could get his respiratory equipment. (2) Bullous emphysema: Current visit: Yes Status: Acute As above (3) AAA (abdominal aortic aneurysm): Current visit: Yes Status: Acute S/p reported EVAR in 2016. On daily ASA, Statin. Follow up as outpatient. (4) Macular degeneration: Current visit: Yes Follow up as outpatient (5) Lung nodule: Current visit: Yes Status: Acute 7 mm spiculated nodule in the [facility], and noted area of linear spiculation RLL. Follow up as outpatient (6) DVT prophylaxis: Current visit: Yes Status: Acute SC Lovenox. (7) Advance directive on file: Current visit: Yes Status: Acute Full Code. Subjective Interval history since last seen: Mr Mendez states he feels a lot better today. He denies dizziness, chest pain, nausea, vomiting. Shortness of breath and wheezing are better. Cough remains nonproductive. Exam Narrative Exam Narrative: General: very pleasant elderly male, A&Ox3, no tachypnea observed while talking to me; I am not observing so much pursed lip breathing today HEENT: EOMI, MMM Heart: RRR, no m/r/g Lungs; wheezing on expiration B - improved GI: abdomen is soft, nontender, nondistended Extremities: no e/c/c BLE's Objective Objective Clinical Data: Abnormal lab results 01/12/19 01/12/19 Range/Units 07:30 07:30 WBC 19.77 H D (4.4-10.8) k/cumm MCV 95.1 H (80-95) fL Absolute Neutrophils 18.78 H (1.2-6.7) k/cumm Absolute Lymphocytes 0.24 L (1.2-3.4) k/cumm Sodium 135 L (136-145) mmol/L Potassium 5.4 H (3.5-5.1) mmol/L BUN 28 H (7-18) mg/dL Glucose 202 H (70-100) mg/dL Vital Signs Temperature 36.1 C L 01/12/19 13:36 Temperature Source Tympanic 01/12/19 13:36 Pulse 99 H 01/12/19 13:36 Pulse Rhythm Irregular 01/12/19 03:45 Pulse 88 01/10/19 15:45 Respiratory Rate 20 01/12/19 13:36 Respiratory Effort Accessory Muscle Use 01/12/19 03:45 Respiratory Depth Shallow 01/12/19 03:45 Respiratory Pattern Irregular 01/12/19 03:45 Blood Pressure 118/65 01/12/19 13:36 Blood Pressure Mean 73 01/10/19 15:45 Pulse Oximetry 94 L 01/12/19 13:36 Oxygen Delivery Method Nasal Cannula 01/12/19 13:36 Oxygen Flow Rate 5 01/12/19 13:36 Fraction of Inspired Oxygen (FIO2) 30 01/10/19 14:31 Pain Level 0 01/12/19 13:36 Intake & Output 01/11/19 01/12/19 01/12/19 23:59 11:59 23:59 Intake Total 480 / 1690 980 / 1500 520 / 1500 Output Total 1300 / 1925 1000 / 1300 300 / 1300 Balance -820 / -235 -20 / 200 220 / 200 Intake: IV Oral 480 / 1680 960 / 1480 520 / 1480 Output: Urine 1300 / 1925 1000 / 1300 300 / 1300 Other: Urine Color Yellow Yellow Yellow Urine Appearance Clear Clear Clear Urine Odor Normal Normal Normal Stool Size Moderate Stool Characteristics Soft Formed Brown Voiding Methods Urinal Urinal Toilet Laboratory Results WBC 19.77 k/cumm (4.4-10.8) H D 01/12/19 07:30 RBC 4.73 m/cumm (4.50-6.00) 01/12/19 07:30 Hgb 14.5 g/dL (13.5-17.5) 01/12/19 07:30 Hct 45.0 % (40.0-50.0) 01/12/19 07:30 MCV 95.1 fL (80-95) H 01/12/19 07:30 MCH 30.7 pg (27.0-33.0) 01/12/19 07:30 MCHC 32.2 g/dL (32.0-36.0) 01/12/19 07:30 RDW 14.0 % (11.8-14.1) 01/12/19 07:30 Plt Count 200 x1000/uL (130-400) 01/12/19 07:30 MPV 10.4 fL (8.0-11.0) 01/12/19 07:30 Immature Gran % 0.3 01/12/19 07:30 95.0 01/12/19 07:30 1.2 01/12/19 07:30 3.4 01/12/19 07:30 0.0 01/12/19 07:30 0.1 01/12/19 07:30 Absolute Neutrophils 18.78 k/cumm (1.2-6.7) H 01/12/19 07:30 Absolute Lymphocytes 0.24 k/cumm (1.2-3.4) L 01/12/19 07:30 Absolute Monocytes 0.67 k/cumm (0.11-0.7) 01/12/19 07:30 Absolute Eosinophils 0.00 k/cumm (0.0-0.7) 01/12/19 07:30 Absolute Basophils 0.02 k/cumm (0.0-0.2) 01/12/19 07:30 PT 9.9 sec (9.3-11.0) 01/10/19 12:15 INR 1.0 (0.9-1.1) 01/10/19 12:15 APTT 19.7 sec (21.0-31.4) L 01/10/19 12:15 997 ng/mlFEU (<500) H 01/10/19 12:15 Sample Site Right radial 01/10/19 15:32 pCO2 51 mmHg (34-47) H 01/10/19 15:32 pO2 83 mmHg (83-108) 01/10/19 15:32 O2 Saturation 96 % (94-98) 01/10/19 15:32 ABG pH 7.37 (7.35-7.45) 01/10/19 15:32 ABG HCO3 29 mmol/L (22-28) H 01/10/19 15:32 ABG Total CO2 26 mmol/L (22-29) 01/10/19 15:32 ABG Base Excess 4.1 mmol/L (-3-3) H 01/10/19 15:32 VBG pH 7.29 (7.32-7.43) L 01/10/19 13:20 VBG pCO2 66 mm/Hg (34-47) H 01/10/19 13:20 VBG pO2 37 mm/Hg (28-44) 01/10/19 13:20 VBG HCO3 32 mmol/L (22-28) H 01/10/19 13:20 VBG Total CO2 29 mmol/L (22-29) 01/10/19 13:20 VBG O2 Saturation 64 % (70-80) L 01/10/19 13:20 VBG Base Excess 5.1 mmol/L (-3-3) H 01/10/19 13:20 30 % 01/10/19 15:32 Sodium 135 mmol/L (136-145) L 01/12/19 07:30 Potassium 5.4 mmol/L (3.5-5.1) H 01/12/19 07:30 Chloride 98 mmol/L (98-107) 01/12/19 07:30 Carbon Dioxide 29.0 mmol/L (21.0-32.0) 01/12/19 07:30 8.0 mmol/L (3-11) 01/12/19 07:30 BUN 28 mg/dL (7-18) H 01/12/19 07:30 1.01 mg/dL (0.70-1.30) 01/12/19 07:30 >= 60.00 (mL/min/1.73m2) 01/12/19 07:30 Glucose 202 mg/dL (70-100) H 01/12/19 07:30 Calcium 8.5 mg/dL (8.5-10.1) 01/12/19 07:30 Magnesium 2.1 mg/dL (1.8-2.4) 01/12/19 07:30 0.9 mg/dL (0.2-1.0) 01/10/19 12:58 AST 21 U/L (15-37) 01/10/19 12:58 ALT 23 U/L (12-78) 01/10/19 12:58 80 U/L (46-116) 01/10/19 12:58 < 0.05 ng/mL (0.00-0.06) 01/10/19 12:58 NT-Pro-B Natriuret Pep 444 pg/mL (-299) H 01/10/19 12:58 7.5 g/dL (6.4-8.2) 01/10/19 12:58 2.9 g/dL (3.4-5.0) L 01/10/19 12:58 < 0.1 ng/mL 01/11/19 07:00 TSH 0.64 uIU/mL (0.36-3.74) 01/10/19 12:58
[2019-01-12] MEDS: Enoxaparin 40 MG/0.4 ML SYR SC (17:32)
[2019-01-12] MEDS: Simvastatin 10 MG TAB PO (20:27)
[2019-01-13] VITALS (14 sets, daily range): BP systolic 108–153; BP diastolic 65–91; PULSE 66–113; RESP 2–22; TEMP 35.7–37; O2SAT 91–95
[2019-01-13] MEDS: Albuterol/Ipratropium 3 ML UPD VIAL UPD ×5 (03:56→20:06)
[2019-01-13] MEDS: methylPREDNISolone SUCC 40 MG VIAL IVP (05:14)
[2019-01-13] MEDS: Normal Saline Flush 10 ML SYR IVP ×2 (05:14→09:10)
[2019-01-13] MEDS: Budesonide 0.5 MG/2 ML UPD VIAL UPD ×2 (05:15→18:34)
[2019-01-13 07:39] LABS: Abs Immature Grans 0.05 k/cumm (0.0-0.09); Absolute Basophil Count 0.01 k/cumm (0.0-0.2); Absolute Eosinophil Count 0.04 k/cumm (0.0-0.7); Absolute Monocyte Count 0.62 k/cumm (0.11-0.7); Absolute Neutrophil Count 13.88 k/cumm (1.2-6.7); Basophils % 0.1; Eosinophils % 0.3; HCT 45.2 % (40.0-50.0); HGB 14.6 g/dL (13.5-17.5); Immature Grans % 0.3; Lymphocytes % 1.7; Mean Corp. HGB Concentration 32.3 g/dL (32.0-36.0); Mean Corpuscular Hemoglobin 30.4 pg (27.0-33.0); Mean Platelet Volume 10.6 fL (8.0-11.0); Monocytes % 4.2; Neutrophils % 93.4; Platelet Count 174 x1000/uL (130-400); RBC 4.81 m/cumm (4.50-6.00); RBC Distribution Width 14.1 % (11.8-14.1); White Blood Cell Count 14.86 k/cumm (4.4-10.8)
[2019-01-13 07:40] LABS: Absolute Lymphocyte Count 0.25 k/cumm (1.2-3.4)
[2019-01-13 08:16] LABS: Anion Gap 9.9 mmol/L (3-11); BUN 28 mg/dL (7-18); CO2 29.1 mmol/L (21.0-32.0); CREATININE 1.08 mg/dL (0.70-1.30); Calcium 8.9 mg/dL (8.5-10.1); Chloride 99 mmol/L (98-107); Glucose 238 mg/dL (70-100); Magnesium 2.4 mg/dL (1.8-2.4); Sodium 138 mmol/L (136-145)
[2019-01-13] MEDS: Dexlansoprazole 30 MG CAP 60 MG PO (09:11)
[2019-01-13] MEDS: Multivitamin TAB 1 TAB PO (09:11)
[2019-01-13] MEDS: Finasteride 5 MG TAB PO (09:11)
[2019-01-13] MEDS: Thiamine 100 MG TAB PO (09:11)
[2019-01-13] MEDS: Folic Acid 1 MG TAB PO (09:11)
[2019-01-13] MEDS: Aspirin E.C. 81 MG TABEC PO (09:11)
--- NOTE | 2019-01-13 10:31 | PDOC.CMPRO ---
- If Service Date Differs Date of service: 01/13/19 Time of Service: 10:31 Care Management Progress Note S/O: Ross was sitting up in bed when CM came to visit. He had been trying to find someone who could take pictures of the electrical outlets in his home to facilitate the instillation of his new Life 200 breathing machine. Neither Ross or his wiife have a cell phone or camera nor do they have any close friends or family who can help out. Attempts were made to contact a neighbor but she was reluctant to go to their home. CM has sent a referral to [facility] to coordinate the repairs. A: Ross is a 78 year old gentleman admitted to [facility] on 01/10/19 with a diagnosis of COPD exacerbation P:Ross is receiving supportive treatment for a COPD exacerbation. He will likely return home with no new services and a resumption of his home oxygen. he will follow up with his PCP and discharge plan of care. CM will continue to provide support to patient, family and identified discharge concerns and issues.
--- NOTE | 2019-01-13 14:12 | PHARADMIT ---
Addendum entered by Marco Plascencia III 01/14/19 14:15: Pharmacy Note Subjective MD notes patient is at baseline re: COPD. No infection noted (Procalcitonin-neg). Objective VS-OK HR-118 [place], SCr, H&H,Plts-OK WBC-12.77 Wgt-68.8 kg Last BM 01/12 Assessment Steroids are tapering.CIWA Zero. Only taking CIWA protocol vits. Plan Patients home needs grounded outlets to support respiratory equipment needed for his discharge. CM working on solving this. Possibel discharge home later today. Original Note: Admission Pharmacy Clinical Review COPD EXACERBATION Code Status Full Code Current Weight Wgt-65.3 kg Renally Cleared and Narrow Therapeutic Index Meds CrCl~ 44 mL/min Meds-OK QTc Value / Action Taken QTc-440 na BP Control, Fever BP- 130/73 Tmax- 36.8C Electrolytes reviewed Na- 138 K+5.0 Mag- 2.4 DVT Prophylaxis Lovenox 40mg, ASA-ec Opiate Usage / Scheduled Bowel Regimen Ordered No Yes Plt/SCr for Heparin / Enoxaparin Plts-174 SCr-1.08 INR for Warfarin inr-1.0 H/H stable, WBC/Bands H&H- 14.6/45.2 WBC- 14.86 Antibiotic appropriateness none Cultures and Sensitivities none Surgical ABX d/c within 24 hr NA DM control / Insulin Dosing BG- 238 Heart Failure (Check EF%) (GISELA's, B-Block, Diuretics) NONE IV to PO Switch na Home Meds Reviewed Yes Home Meds Not Ordered Ordered Comments
[2019-01-13] MEDS: Mylanta Suspension 30 ML CUP PO (16:19)
--- NOTE | 2019-01-13 16:25 | W.PM.PROGNOT ---
Date of Service Date of service: 01/13/19 Time of Service: 16:25 Assessment and Plan (1) Chest pain: Current visit: Yes Status: Acute EKG with NSR, HR 97, no acute ischemia. Will trial nitroglycerin, trend troponins, put the patient on tele. I do see that the patient has a AAA - if pain persists, we will rule out dissection. (2) COPD with acute exacerbation: Current visit: No Status: Acute Improving. At baseline, Severe COPD with Bullae. H/o pseudomonas colonization, 2 recent courses of antibiotics (Pip-Jamarcus & Levofloxacin), along with lengthy steroid tapers. - No evidence of acute infection now (procalcitonin/imaging negative). - Continue steroid taper (convert to PO); continue scheduled duonebs, prn Xopenex, and Q12 inhaled Budesonide. The patient was apparently approved for Life [employer] via [employer] - however, his home does not have grounded outlets or smoke detectors. Will speak with care managers about any community resources that might be available to help fix the electrical situation at home so that the patient could get his respiratory equipment. (3) Bullous emphysema: Current visit: No Status: Acute As above (4) AAA (abdominal aortic aneurysm): Current visit: No Status: Acute S/p reported EVAR in 2016. On daily ASA, Statin. as above (5) Macular degeneration: Current visit: No Follow up as outpatient (6) Lung nodule: Current visit: No Status: Acute 7 mm spiculated nodule in the [facility], and noted area of linear spiculation RLL. Follow up as outpatient (7) DVT prophylaxis: Current visit: No Status: Acute SC Lovenox. (8) Advance directive on file: Current visit: No Status: Acute Full Code. Subjective Interval history since last seen: Patient complains of substernal chest pain that started 15 minutes ago - stabbing. Received breathing treatment 1 hour ago. Breathing is actually better and he does not feel short of breath. Denies dizziness, shortness of breath, nausea. VSS - but the heart rate is irregular. EKG is being obtained. Exam Narrative Exam Narrative: General: very pleasant elderly male, A&Ox3, appears mildly anxious, very minimally tachypneic HEENT: EOMI, MMM Heart: Distant heart sounds - irregular Lungs; wheezing on expiration B - improved GI: abdomen is soft, nontender, nondistended Extremities: no e/c/c BLE's Objective Objective Clinical Data: Abnormal lab results 01/13/19 01/13/19 Range/Units 06:40 07:50 WBC 14.86 H (4.4-10.8) k/cumm Absolute Neutrophils 13.88 H (1.2-6.7) k/cumm Absolute Lymphocytes 0.25 L (1.2-3.4) k/cumm BUN 28 H (7-18) mg/dL Glucose 238 H (70-100) mg/dL Vital Signs Temperature 35.7 C L 01/13/19 11:49 Temperature Source Tympanic 01/13/19 11:49 Pulse 89 01/13/19 15:48 Pulse Rhythm Regular 01/13/19 15:00 Pulse 88 01/10/19 15:45 Respiratory Rate 22 01/13/19 15:48 Respiratory Effort Pursed Lip 01/13/19 15:00 Respiratory Depth Normal 01/13/19 15:00 Respiratory Pattern Normal 01/13/19 15:00 Blood Pressure 130/73 01/13/19 11:49 Blood Pressure Mean 73 01/10/19 15:45 Pulse Oximetry 93 L 01/13/19 15:48 Oxygen Delivery Method Nasal Cannula 01/13/19 15:48 Oxygen Flow Rate 3 01/13/19 15:48 Fraction of Inspired Oxygen (FIO2) 30 01/10/19 14:31 Pain Level 3 01/13/19 11:49 Intake & Output 01/12/19 01/13/19 01/13/19 23:59 11:59 23:59 Intake Total 830 / 1810 920 / 1280 360 / 1280 Output Total 1550 / 2550 1300 / 1800 500 / 1800 Balance -720 / -740 -380 / -520 -140 / -520 Weight 65.3 kg Intake: IV Oral 820 / 1780 900 / 1260 360 / 1260 Output: Urine 1550 / 2550 1300 / 1800 500 / 1800 Other: Urine Color Yellow Pale Pale Yellow Urine Appearance Clear Clear Clear Urine Odor Normal Normal Stool Size Smear Stool Characteristics Soft Voiding Methods Urinal Urinal Urinal Laboratory Results WBC 14.86 k/cumm (4.4-10.8) H 01/13/19 06:40 RBC 4.81 m/cumm (4.50-6.00) 01/13/19 06:40 Hgb 14.6 g/dL (13.5-17.5) 01/13/19 06:40 Hct 45.2 % (40.0-50.0) 01/13/19 06:40 MCV 94.0 fL (80-95) 01/13/19 06:40 MCH 30.4 pg (27.0-33.0) 01/13/19 06:40 MCHC 32.3 g/dL (32.0-36.0) 01/13/19 06:40 RDW 14.1 % (11.8-14.1) 01/13/19 06:40 Plt Count 174 x1000/uL (130-400) 01/13/19 06:40 MPV 10.6 fL (8.0-11.0) 01/13/19 06:40 Immature Gran % 0.3 01/13/19 06:40 93.4 01/13/19 06:40 1.7 01/13/19 06:40 4.2 01/13/19 06:40 0.3 01/13/19 06:40 0.1 01/13/19 06:40 Absolute Neutrophils 13.88 k/cumm (1.2-6.7) H 01/13/19 06:40 Absolute Lymphocytes 0.25 k/cumm (1.2-3.4) L 01/13/19 06:40 Absolute Monocytes 0.62 k/cumm (0.11-0.7) 01/13/19 06:40 Absolute Eosinophils 0.04 k/cumm (0.0-0.7) 01/13/19 06:40 Absolute Basophils 0.01 k/cumm (0.0-0.2) 01/13/19 06:40 PT 9.9 sec (9.3-11.0) 01/10/19 12:15 INR 1.0 (0.9-1.1) 01/10/19 12:15 APTT 19.7 sec (21.0-31.4) L 01/10/19 12:15 997 ng/mlFEU (<500) H 01/10/19 12:15 Sample Site Right radial 01/10/19 15:32 pCO2 51 mmHg (34-47) H 01/10/19 15:32 pO2 83 mmHg (83-108) 01/10/19 15:32 O2 Saturation 96 % (94-98) 01/10/19 15:32 ABG pH 7.37 (7.35-7.45) 01/10/19 15:32 ABG HCO3 29 mmol/L (22-28) H 01/10/19 15:32 ABG Total CO2 26 mmol/L (22-29) 01/10/19 15:32 ABG Base Excess 4.1 mmol/L (-3-3) H 01/10/19 15:32 VBG pH 7.29 (7.32-7.43) L 01/10/19 13:20 VBG pCO2 66 mm/Hg (34-47) H 01/10/19 13:20 VBG pO2 37 mm/Hg (28-44) 01/10/19 13:20 VBG HCO3 32 mmol/L (22-28) H 01/10/19 13:20 VBG Total CO2 29 mmol/L (22-29) 01/10/19 13:20 VBG O2 Saturation 64 % (70-80) L 01/10/19 13:20 VBG Base Excess 5.1 mmol/L (-3-3) H 01/10/19 13:20 30 % 01/10/19 15:32 Sodium 138 mmol/L (136-145) 01/13/19 07:50 Potassium 5.0 mmol/L (3.5-5.1) 01/13/19 07:50 Chloride 99 mmol/L (98-107) 01/13/19 07:50 Carbon Dioxide 29.1 mmol/L (21.0-32.0) 01/13/19 07:50 9.9 mmol/L (3-11) 01/13/19 07:50 BUN 28 mg/dL (7-18) H 01/13/19 07:50 1.08 mg/dL (0.70-1.30) 01/13/19 07:50 >= 60.00 (mL/min/1.73m2) 01/13/19 07:50 Glucose 238 mg/dL (70-100) H 01/13/19 07:50 Calcium 8.9 mg/dL (8.5-10.1) 01/13/19 07:50 Magnesium 2.4 mg/dL (1.8-2.4) 01/13/19 07:50 0.9 mg/dL (0.2-1.0) 01/10/19 12:58 AST 21 U/L (15-37) 01/10/19 12:58 ALT 23 U/L (12-78) 01/10/19 12:58 80 U/L (46-116) 01/10/19 12:58 < 0.05 ng/mL (0.00-0.06) 01/10/19 12:58 NT-Pro-B Natriuret Pep 444 pg/mL (-299) H 01/10/19 12:58 7.5 g/dL (6.4-8.2) 01/10/19 12:58 2.9 g/dL (3.4-5.0) L 01/10/19 12:58 < 0.1 ng/mL 01/11/19 07:00 TSH 0.64 uIU/mL (0.36-3.74) 01/10/19 12:58
[2019-01-13] MEDS: Aspirin E.C. 325 MG TABEC PO (16:37)
[2019-01-13 17:30] LABS: Troponin I < 0.05 ng/mL (0.00-0.06)
[2019-01-13] MEDS: Enoxaparin 40 MG/0.4 ML SYR SC (18:34)
[2019-01-13] MEDS: Simvastatin 10 MG TAB PO (20:06)
[2019-01-13] MEDS: predniSONE 20 MG TAB 40 MG PO (20:06)
[2019-01-13 22:40] LABS: Troponin I < 0.05 ng/mL (0.00-0.06)
[2019-01-14] VITALS (15 sets, daily range): BP systolic 116–147; BP diastolic 63–82; PULSE 68–118; RESP 1–28; TEMP 36.4–36.9; O2SAT 88–108
[2019-01-14] MEDS: Albuterol/Ipratropium 3 ML UPD VIAL UPD ×6 (03:35→23:16)
[2019-01-14] MEDS: Budesonide 0.5 MG/2 ML UPD VIAL UPD ×2 (05:36→17:28)
[2019-01-14 07:43] LABS: Abs Immature Grans 0.03 k/cumm (0.0-0.09); Absolute Monocyte Count 0.47 k/cumm (0.11-0.7); HCT 45.9 % (40.0-50.0); HGB 14.6 g/dL (13.5-17.5); Immature Grans % 0.2; Lymphocytes % 1.6; Mean Corp. HGB Concentration 31.8 g/dL (32.0-36.0); Mean Corpuscular Hemoglobin 30.6 pg (27.0-33.0); Mean Corpuscular Volume 96.2 fL (80-95); Mean Platelet Volume 10.3 fL (8.0-11.0); Monocytes % 3.7; Neutrophils % 94.5; Platelet Count 194 x1000/uL (130-400); RBC 4.77 m/cumm (4.50-6.00); RBC Distribution Width 14.3 % (11.8-14.1); White Blood Cell Count 12.77 k/cumm (4.4-10.8)
[2019-01-14 07:51] LABS: Absolute Neutrophil Count 12.07 k/cumm (1.2-6.7)
[2019-01-14] MEDS: Dexlansoprazole 30 MG CAP 60 MG PO (07:57)
[2019-01-14] MEDS: Finasteride 5 MG TAB PO (07:58)
[2019-01-14] MEDS: Folic Acid 1 MG TAB PO (07:58)
[2019-01-14] MEDS: predniSONE 20 MG TAB 40 MG PO ×3 (07:58→20:09)
[2019-01-14] MEDS: Normal Saline Flush 10 ML SYR IVP ×2 (07:58→17:28)
[2019-01-14] MEDS: Aspirin E.C. 81 MG TABEC PO (07:58)
[2019-01-14] MEDS: Multivitamin TAB 1 TAB PO (07:58)
[2019-01-14] MEDS: Thiamine 100 MG TAB PO (07:58)
[2019-01-14 08:09] LABS: Anion Gap 3.1 mmol/L (3-11); BUN 30 mg/dL (7-18); CO2 35.9 mmol/L (21.0-32.0); CREATININE 0.88 mg/dL (0.70-1.30); Calcium 8.8 mg/dL (8.5-10.1); Chloride 100 mmol/L (98-107); Glucose 217 mg/dL (70-100); Magnesium 2.4 mg/dL (1.8-2.4); Potassium 4.7 mmol/L (3.5-5.1); Sodium 139 mmol/L (136-145)
[2019-01-14 08:10] LABS: Troponin I < 0.05 ng/mL (0.00-0.06)
--- NOTE | 2019-01-14 13:39 | CMPROGNOTE_ITS ---
Care Management Progress Note S/O-Met with Rsos today. He was sitting up in bed and easily engaged in discussion. He knows he will have to work on trying to get repairs to his home to allow use of the [employer] machine at home. He has his concentrator which he can manage with. Referral was sent yesterday for possible assist with [employer]. MICHELLE will also discuss this with Rabia CABALLERO when she returns call. Called his PCP office at [facility] in [place] and left message for FEDERICO Camarillo to return call. He is not usually homebound, but MD wants HH to follow him, and he does have Medicaid, so this can happen. He will not be d/c today per . When he is, the HH agency for his area is [facility]. A-78 yo man admitted with COPD exacerbation. P-d/c home as per MD with referral to for RN and INDUSTRIAL NURSE. Family to transport.
--- NOTE | 2019-01-14 16:38 | W.PM.PROGNOT ---
Date of Service Date of service: 01/14/19 Time of Service: 16:39 Assessment and Plan (1) Chest pain: Current visit: Yes Status: Resolved No ACS. Likely due to reflux. Continue PPI/prn mylanta. Tele d/c'ed. (2) COPD with acute exacerbation: Current visit: No Status: Acute A step back today - at least, this afternoon after exertion. Will increase prednisone to TID. He is at his baseline oxygen requirement. Keep the patient another day - he thinks he'll be ready. His COPD is severe at baseline with Bullae. H/o pseudomonas colonization, 2 recent courses of antibiotics (Pip-Jamarcus & Levofloxacin), along with lengthy steroid tapers. - No evidence of acute infection now (procalcitonin/imaging negative). - Continue steroid taper continue scheduled duonebs, prn Xopenex, and Q12 inhaled Budesonide. The patient was apparently approved for Life 2000 via [employer] - however, his home does not have grounded outlets or smoke detectors. Will speak with care managers about any community resources that might be available to help fix the electrical situation at home so that the patient could get his respiratory equipment. (3) Bullous emphysema: Current visit: No Status: Acute As above (4) AAA (abdominal aortic aneurysm): Current visit: No Status: Chronic S/p reported EVAR in 2016. On daily ASA, Statin. as above (5) Macular degeneration: Current visit: No Follow up as outpatient (6) Lung nodule: Current visit: No Status: Acute 7 mm spiculated nodule in the ELIZABETH, and noted area of linear spiculation RLL. Follow up as outpatient (7) DVT prophylaxis: Current visit: No Status: Acute SC Lovenox. (8) Advance directive on file: Current visit: No Status: Acute Full Code. Subjective Interval history since last seen: Not ready for discharge today - states he feels quite winded after everything he had to do today. Denies dizziness, chest pain, nausea, vomiting. Remains short of breath and states he is not at his baseline. Exam Narrative Exam Narrative: General: very pleasant elderly male, A&Ox3, appears mildly anxious, more tachypenic today than he was yesterday. HEENT: EOMI, MMM Heart: Distant heart sounds, RRR Lungs; wheezing on expiration B - improved, but more tachypneic, appears to have quiet rales now GI: abdomen is soft, nontender, nondistended Extremities: no e/c/c BLE's Objective Objective Clinical Data: Abnormal lab results 01/14/19 01/14/19 Range/Units 07:10 07:10 WBC 12.77 H (4.4-10.8) k/cumm MCV 96.2 H (80-95) fL MCHC 31.8 L (32.0-36.0) g/dL RDW 14.3 H (11.8-14.1) % Absolute Neutrophils 12.07 H (1.2-6.7) k/cumm Absolute Lymphocytes 0.20 L (1.2-3.4) k/cumm Carbon Dioxide 35.9 H (21.0-32.0) mmol/L BUN 30 H (7-18) mg/dL Glucose 217 H (70-100) mg/dL Vital Signs Temperature 36.7 C 01/14/19 16:11 Temperature Source Tympanic 01/14/19 16:11 Pulse 93 H 01/14/19 16:11 Pulse Rhythm Regular 01/14/19 15:05 Pulse 88 01/10/19 15:45 Respiratory Rate 22 01/14/19 16:11 Respiratory Effort 01/14/19 15:05 Respiratory Depth Normal 01/14/19 15:05 Respiratory Pattern Normal 01/14/19 15:05 Blood Pressure 143/81 H 01/14/19 16:11 Blood Pressure Mean 73 01/10/19 15:45 Pulse Oximetry 95 01/14/19 16:11 Oxygen Delivery Method Nasal Cannula 01/14/19 16:11 Oxygen Flow Rate 3 01/14/19 16:11 Fraction of Inspired Oxygen (FIO2) 30 01/10/19 14:31 Pain Level 0 01/14/19 08:20 Comment 01/13/19 23:14 Intake & Output 01/13/19 01/14/19 01/14/19 23:59 11:59 23:59 Intake Total 840 / 1760 770 / 1020 250 / 1020 Output Total 1320 / 2620 1150 / 1570 420 / 1570 Balance -480 / -860 -380 / -550 -170 / -550 Weight 68.8 kg Intake: IV Oral 840 / 1740 770 / 1010 240 / 1010 Output: Urine 1320 / 2620 1150 / 1570 420 / 1570 Other: Urine Color Yellow Pale Yellow Yellow Urine Appearance Clear Clear Clear Urine Odor None Voiding Methods Urinal Urinal Urinal Laboratory Results WBC 12.77 k/cumm (4.4-10.8) H 01/14/19 07:10 RBC 4.77 m/cumm (4.50-6.00) 01/14/19 07:10 Hgb 14.6 g/dL (13.5-17.5) 01/14/19 07:10 Hct 45.9 % (40.0-50.0) 01/14/19 07:10 MCV 96.2 fL (80-95) H 01/14/19 07:10 MCH 30.6 pg (27.0-33.0) 01/14/19 07:10 MCHC 31.8 g/dL (32.0-36.0) L 01/14/19 07:10 RDW 14.3 % (11.8-14.1) H 01/14/19 07:10 Plt Count 194 x1000/uL (130-400) 01/14/19 07:10 MPV 10.3 fL (8.0-11.0) 01/14/19 07:10 Immature Gran % 0.2 01/14/19 07:10 94.5 01/14/19 07:10 1.6 01/14/19 07:10 3.7 01/14/19 07:10 0.0 01/14/19 07:10 0.0 01/14/19 07:10 Absolute Neutrophils 12.07 k/cumm (1.2-6.7) H 01/14/19 07:10 Absolute Lymphocytes 0.20 k/cumm (1.2-3.4) L 01/14/19 07:10 Absolute Monocytes 0.47 k/cumm (0.11-0.7) 01/14/19 07:10 Absolute Eosinophils 0.00 k/cumm (0.0-0.7) 01/14/19 07:10 Absolute Basophils 0.00 k/cumm (0.0-0.2) 01/14/19 07:10 PT 9.9 sec (9.3-11.0) 01/10/19 12:15 INR 1.0 (0.9-1.1) 01/10/19 12:15 APTT 19.7 sec (21.0-31.4) L 01/10/19 12:15 997 ng/mlFEU (<500) H 01/10/19 12:15 Sample Site Right radial 01/10/19 15:32 pCO2 51 mmHg (34-47) H 01/10/19 15:32 pO2 83 mmHg (83-108) 01/10/19 15:32 O2 Saturation 96 % (94-98) 01/10/19 15:32 ABG pH 7.37 (7.35-7.45) 01/10/19 15:32 ABG HCO3 29 mmol/L (22-28) H 01/10/19 15:32 ABG Total CO2 26 mmol/L (22-29) 01/10/19 15:32 ABG Base Excess 4.1 mmol/L (-3-3) H 01/10/19 15:32 VBG pH 7.29 (7.32-7.43) L 01/10/19 13:20 VBG pCO2 66 mm/Hg (34-47) H 01/10/19 13:20 VBG pO2 37 mm/Hg (28-44) 01/10/19 13:20 VBG HCO3 32 mmol/L (22-28) H 01/10/19 13:20 VBG Total CO2 29 mmol/L (22-29) 01/10/19 13:20 VBG O2 Saturation 64 % (70-80) L 01/10/19 13:20 VBG Base Excess 5.1 mmol/L (-3-3) H 01/10/19 13:20 30 % 01/10/19 15:32 Sodium 139 mmol/L (136-145) 01/14/19 07:10 Potassium 4.7 mmol/L (3.5-5.1) 01/14/19 07:10 Chloride 100 mmol/L (98-107) 01/14/19 07:10 Carbon Dioxide 35.9 mmol/L (21.0-32.0) H 01/14/19 07:10 3.1 mmol/L (3-11) 01/14/19 07:10 BUN 30 mg/dL (7-18) H 01/14/19 07:10 0.88 mg/dL (0.70-1.30) 01/14/19 07:10 >= 60.00 (mL/min/1.73m2) 01/14/19 07:10 Glucose 217 mg/dL (70-100) H 01/14/19 07:10 Calcium 8.8 mg/dL (8.5-10.1) 01/14/19 07:10 Magnesium 2.4 mg/dL (1.8-2.4) 01/14/19 07:10 0.9 mg/dL (0.2-1.0) 01/10/19 12:58 AST 21 U/L (15-37) 01/10/19 12:58 ALT 23 U/L (12-78) 01/10/19 12:58 80 U/L (46-116) 01/10/19 12:58 < 0.05 ng/mL (0.00-0.06) 01/14/19 07:10 NT-Pro-B Natriuret Pep 444 pg/mL (-299) H 01/10/19 12:58 7.5 g/dL (6.4-8.2) 01/10/19 12:58 2.9 g/dL (3.4-5.0) L 01/10/19 12:58 < 0.1 ng/mL 01/11/19 07:00 TSH 0.64 uIU/mL (0.36-3.74) 01/10/19 12:58
[2019-01-14] MEDS: Furosemide 20 MG/2 ML VIAL IVP (17:27)
[2019-01-14] MEDS: Enoxaparin 40 MG/0.4 ML SYR SC (17:27)
[2019-01-14] MEDS: Simvastatin 10 MG TAB PO (20:09)
[2019-01-15] VITALS (7 sets, daily range): BP systolic 123–144; BP diastolic 63–80; PULSE 81–109; RESP 2–24; TEMP 36.2–36.8; O2SAT 91–97
[2019-01-15] MEDS: Albuterol/Ipratropium 3 ML UPD VIAL UPD ×4 (03:40→16:20)
[2019-01-15] MEDS: Budesonide 0.5 MG/2 ML UPD VIAL UPD (06:02)
[2019-01-15] MEDS: Dexlansoprazole 30 MG CAP 60 MG PO (07:28)
[2019-01-15] MEDS: Folic Acid 1 MG TAB PO (07:40)
[2019-01-15] MEDS: Thiamine 100 MG TAB PO (07:40)
[2019-01-15] MEDS: Finasteride 5 MG TAB PO (07:40)
[2019-01-15] MEDS: Aspirin E.C. 81 MG TABEC PO (07:41)
[2019-01-15] MEDS: Multivitamin TAB 1 TAB PO (07:41)
[2019-01-15] MEDS: predniSONE 20 MG TAB 40 MG PO ×2 (07:41→14:22)
--- NOTE | 2019-01-15 10:56 | OT.INIE ---
Occupational Therapy Notes Inpatient Occupational Therapy Evaluation Date: 01/15/19 Referring Doctor:Nadia Daniels MD OT Orders: Eval and Treat Precautions: Fall, Standard PATIENT PROFILE/ADMITTING DIAGNOSIS: Pt is a 78 year old male who was admitted to [facility] to Med surg for COPD exacerbation, CO2 retention, SOB (shortness of breath). Past Medical History: Medical History (Updated 01/10/19 @ 15:24 by Waqar Merlos MD) AAA (abdominal aortic aneurysm) (Acute) BPH (benign prostatic hyperplasia) (Chronic) Bullous emphysema (Acute) COPD (chronic obstructive pulmonary disease) (Chronic) GERD (gastroesophageal reflux disease) (Chronic) History of acute cholangitis (Acute) History of kidney stones (Acute) Hypercholesteremia (Acute) Lung nodule (Acute) Macular degeneration (Acute) Surgical History (Updated 01/10/19 @ 12:35 by Florencio Zaidi DO) S/P AAA repair (Acute) Social History/Home Situation: Pt lives in a private home with his spouse. He reports that he has been in and out of the hospital multiple times in the past month for his breathing. He notes that he does require (A) with his ADLs at time which his (A) him with and his children. He states that he has a tub/shower combination which he has a shower bench. He does not drive as he gets out of breathe easily. He was able to perform functional mobility with his FWW. He uses O2 at home and reports that he is waiting on a breathing machine for at home. Equipment owned/DME: FWW, grab bars, shower bench SUBJECTIVE: Pt was sitting in shower with HOSPITAL ORDERLY when OT arrived. He was agreeable to OT consult and reported that he would like to go home. OBJECTIVE: General Observation: Nasal O2 cannula, heavy breathing with functional mobility Mental Status: A&Ox3 Pain: no c/o pain ROM: RUE AROM WFL L UE AROM WFL STRENGTH: RUE Shoulder flexion 4/5, bicep 4-/5, tricep 4/5, optical instrument assembler is strong and symmetrical LUE Shoulder flexion 4/5, bicep 4-/5, tricep 4/5, optical instrument assembler is strong and symmetrical FUNCTIONAL MOBILITY/ADLS: Transfers with FWW Sit-Stand (S) Stand-sit (S) shower-bed (S) BATHING in shower Bathing UE (I) with (B) UE and abdomen, max (A) hair Bathing LE (I) DRESSING Sitting on shower bench Dressing UE (I) [facility] gown Dressing LE (I) donning underwear and socks GROOMING Sitting (I) with brushing hair. BALANCE: Static sitting Normal Dynamic Sitting Normal Static Standing Normal Dynamic Standing Normal SPECIAL TESTS: Daily Activity Limitations Standardized Measure [facility] AM -PAC ?6 clicks? Daily Activity Inpatient Short Form: Raw score: 22 Standardized score: 47.10 CMS score: 25.80% INFORMED CONSENT/EDUCATION: Pt instructed in purpose of OT Consult and plan of care. ASSESSMENT: Patient is a 78-year-old male referred to occupational therapy services with diagnosis of COPD exacerbation, CO2 retention, SOB (shortness of breath). Patient presents with clinical signs and symptoms consistent with dx, as demonstrated by the following impairment level findings/ functional limitations: Decreased functional activity tolerance, decreased breathing tolerance when performing functional mobility. Pt is very (I) in terms of ADLs/IADLs. He was able to demonstrate increased overall strength and ROM. OT recommends that pt return home when medically cleared per MD. OT does feel that pt would benefit from OT services but pt states he is not receptive to this at this time. AMPAC score 22, CMS score 25.80% Patient is assessed as a Low 79044 complexity based on the following: History: See Above Examination: See Above Presentation: Evolving Decision Making: AMPAC score 22, CMS score 25.80% GOALS N/A PLAN OF CARE/TREATMENT PLAN: OT consult only. DISCHARGE RECOMMENDATIONS home when cleared per MD. OT does feel that pt may benefit from services which he is not receptive to at this time. TREATMENT TIME/MINUTES/CODES 77668, [id number], 25 minutes (09:45) [facility]
--- NOTE | 2019-01-15 15:12 | PT.INTREAT ---
Date of service: 01/15/19 Time of Service: 15:12 PT Notes Inpatient Physical Therapy Treatment Note [facility] Date: 01/15/2019 PRECAUTIONS: Activity as tolerated SUBJECTIVE: Ross is agreeable to participate in PT. He states he believes he is being discharged home today. OBJECTIVE: PAIN: No complaints of pain BED MOBILITY/TRANSFERS Supine-sit: I Sit-supine: I Sit-stand: I Stand-sit: I GAIT Assistive Device: No AD Weight bearing: Full Assist: SBA Distance: 200' Deviation: Seated rest x1, standing rest x1, SOB, 4L O2 via NC STAIRS: Up/down 3x4 using B rails and a step-over pattern with supervision ASSESSMENT: Patient tolerated a progression in gait distance without assistive device support, requiring seated rest x1 and standing rest x1 due to SOB. Patient would benefit from general conditioning for improved activity tolerance. PLAN: Continue with PTs POC TREATMENT CODE/TIME: 20 minutes; [id number]
--- NOTE | 2019-01-15 16:24 | W.PM.DS.N ---
Date of service: 01/15/19 Time of Service: 16:24 DS: Diagnosis Discharge Diagnosis (1) COPD with acute exacerbation: Status: Acute (2) Chest pain: Status: Resolved (3) Bullous emphysema: Status: Acute (4) AAA (abdominal aortic aneurysm): Status: Chronic (5) Macular degeneration: (6) Lung nodule: Status: Acute (7) GERD (gastroesophageal reflux disease): Status: Chronic Discharge Plan Disposition Patient Disposition: HOME W/HOME HEALTH SERVICE Condition: Improving Discharge Details Chief Complaint: SOB Clinical Impression: COPD exacerbation, CO2 retention, SOB (shortness of breath) Reason For Visit: COPD EXACERBATION Admit Date/Time: 01/10/19 14:19 Admit Provider: Waqar Merlos Attending Provider: Waqar Merlos Primary Care Provider: [facility] ED Provider: Florencio Zaidi Hospital Course Hospital Course: Mr Mendez is a 78 year old male with severe oxygen dependent COPD, chronic hypoxic hypercapnic respiratory failure normally on 3-5L of O2, pseudomonas colonization, AAA, lung nodule, who was admitted to [facility] on 01/10/19 with acute exacerbation of COPD and acute on chronic hypoxic hypercapnic respiratory failure, requiring BiPAP. He had a negative procalcitonin and no evidence of bacterial infection either by imaging or by historical clues. He was treated with high dose IV steroids, which were gradually tapered until the patient returned to his respiratory baseline. He has not required BiPAP past the first 24 hours of admission. On 01/13, the patient complained of chest pain. He ruled out for acute coronary syndrome; his chest pain did get better with mylanta, indicating likely reflux as etiology. He was already on a PPI, which should be continued on discharge. We understand that the patient has qualified for Life 2000 machine at home - however, has not been able to have this set up due to lack of properly grounded electrical outlets as well as smoke detectors at home. A referral to community connections was made to help the patient with these so that he can have his equipment. He feels ready to go home today. He would benefit from home health nursing, PT, OT, WET ROOM SUPERVISOR and palliative care on discharge. Care for patient as well as completion of his discharge summary on day of discharge took 45 minutes. Home Meds and New Rx's Prescriptions: New multivitamin [Multiple Vitamins] Tablet 1 tab PO DAILY Qty: 30 RF: 0 prednisone 20 mg Tablet See Rx Instructions .ROUTE .COMPLEX Qty: 15 RF: 0 thiamine mononitrate (vit B1) [Vitamin B-1 (mononitrate)] 100 mg Tablet 100 mg PO DAILY Qty: 30 RF: 0 folic acid 1 mg Tablet 1 mg PO DAILY 30 Days Qty: 30 RF: 0 alum-mag hydroxide-simeth [Mag-Al Plus] 200-200-20 mg/5 mL Suspension 30 ml PO Q2H PRN PRNQty: 0 RF: 0 Continued simvastatin 10 mg Tablet 10 mg PO DAILY RF: 0 aspirin [Aspir-81] 81 mg Tablet,Delayed Release (Dr/Ec) 81 mg PO DAILY RF: 0 albuterol sulfate [Ventolin HFA] 90 mcg/actuation Hfa Aerosol Inhaler 2 puff INHALATION Q4H PRN PRNRF: 0 finasteride [Proscar] 5 mg Tablet 5 mg PO DAILY RF: 0 Symbicort 160-4.5 mcg/actuation Hfa Aerosol Inhaler 2 puff INHALATION BID RF: 0 Dexilant 60 mg Capsule,Biphase Delayed Releas 60 mg PO DAILY RF: 0 ipratropium-albuterol 0.5 mg-3 mg(2.5 mg base)/3 mL Solution For Nebulization 3 ml INHALATION Q4H PRN PRNRF: 0 cholecalciferol (vitamin D3) [Vitamin D3] 400 unit Capsule 400 unit PO DAILY RF: 0 Discharge Instructions Instructions: Prednisone (By mouth), COPD (Chronic Obstructive Pulmonary Disease) (DC) Additional Instructions: Complete your steroid taper as prescribed. Return to the hospital with any fever, bleeding, chest pain, shortness of breath. Follow up with your PCP in 1-2 weeks. Make an appointment with pulmonology. Care Plan Goals: Home with home health RN, PT, OT, WET ROOM SUPERVISOR. Activity:: Activity as Tolerated Equipment/Supplies:: No Equipment Needed Diet:: As Tolerated Discharge Orders Discharge Orders: Discharge Order (Routine); Ordered 01/15/19 Ordered By: Nadia Daniels Exam Narrative Exam Narrative: General: very pleasant elderly male, A&Ox3, appears comfortable HEENT: EOMI, MMM Heart: Distant heart sounds, RRR Lungs: Minimal wheezing on expiration B. GI: abdomen is soft, nontender, nondistended Extremities: no e/c/c BLE's DS: Data Vitals/I&O Vitals and I&O: Vital Signs Temperature 36.5 C 01/15/19 11:25 Temperature Source Tympanic 01/15/19 11:25 Pulse 109 H 01/15/19 16:20 Pulse Rhythm Regular 01/15/19 07:15 Pulse 88 01/10/19 15:45 Respiratory Rate 20 01/15/19 16:20 Respiratory Effort Pursed Lip 01/15/19 07:15 Respiratory Depth Shallow 01/15/19 07:15 Respiratory Pattern Normal 01/15/19 07:15 Blood Pressure 133/79 01/15/19 11:25 Blood Pressure Mean 73 01/10/19 15:45 Pulse Oximetry 91 L 01/15/19 16:20 Oxygen Delivery Method Nasal Cannula 01/15/19 16:20 Oxygen Flow Rate 4 01/15/19 16:20 Fraction of Inspired Oxygen (FIO2) 30 01/10/19 14:31 Pain Level 0 01/15/19 11:25 Comment 01/13/19 23:14 Intake & Output 01/14/19 01/15/19 01/15/19 23:59 11:59 23:59 Intake Total 500 / 1270 275 / 535 260 / 535 Output Total 1110 / 2260 200 / 635 435 / 635 Balance -610 / -990 75 / -100 -175 / -100 Intake: IV 20 / 20 20 / 20 Oral 480 / 1250 275 / 515 240 / 515 Output: Urine 1110 / 2260 200 / 635 435 / 635 Other: Urine Color Pale Yellow Pale Yellow Urine Appearance Clear Clear Clear Urine Odor None None None Stool Size Moderate Stool Characteristics Formed Hard Brown Voiding Methods Urinal Urinal Urinal Completed studies during hospitalization [Text1]: CT chest: No evidence of pulmonary emboli. Stable pulmonary nodules. [facility] Medical History (Updated 01/15/19 @ 16:27 by Nadia Daniels MD) AAA (abdominal aortic aneurysm) (Chronic) BPH (benign prostatic hyperplasia) (Chronic) Bullous emphysema (Acute) COPD (chronic obstructive pulmonary disease) (Chronic) GERD (gastroesophageal reflux disease) (Chronic) History of acute cholangitis (Acute) History of kidney stones (Acute) Hypercholesteremia (Acute) Lung nodule (Acute) Macular degeneration (Acute) Surgical History (Updated 07/26/19 @ 12:35 by Florencio Zaidi DO) S/P AAA repair (Acute) Social History (Updated 01/10/19 @ 15:38 by Waqar Merlos MD) Smoking/Tobacco Use Status: Former Tobacco Use Alcohol Intake: never Substance use type: does not use Do you feel safe at home: Yes Do you feel safe in your relationship?: Yes Additional Social history: Patient is a former insurance sales associate, now retired. Prior alcohol reported, none currently. Quit tobacco 2 years ago, with with an approximate 120 pack-year history of smoking.
--- NOTE | 2019-01-15 17:00 | IN_ITS ---
Date of service: 01/15/19 Time of Service: 10:02 PT Notes Inpatient Physical Therapy Evaluation Date: 01/15/2019 Referring Doctor: Nadia Daniels MD PT Orders: PT CONSULT: Eval/treat Precautions: Fall. Standard. Activity as tolerated Patient Profile/Admitting Diagnosis: Patient is a 78-year-old male with past medical history significant for chronic obstructive pulmonary disease and hypercholesterolemia who presented to the ED on 01/10/2019 with chief complaints of dyspnea and generalized weakness. Patient was diagnosed with COPD exacerbation, bullous emphysema, AAA and lung nodule. PMHX: Medical History BPH (benign prostatic hyperplasia) (Chronic) COPD (chronic obstructive pulmonary disease) (Chronic) GERD (gastroesophageal reflux disease) (Chronic) Hypercholesteremia (Acute) Surgical History (Updated 01/10/19 @ 12:35 by Florencio Zaidi DO) S/P AAA repair (Acute) Social History/Home Situation: Gordo lives in a home significant other with 2 step ups to enter with rails on both sides. He is independent with all aspects of ADLs with the use of FWW. Current Functional Limitations: Need for an assistive device for all mobility ADL performance Equipment Owned/DME: FWW, shower bench, BPAP Subjective: Patient is agreeable to a PT consult. He hopes to go home as soon as he is safe to do so today. He states that he has a very good support at home between his son and his significant other. Objective: General Observation: Patient is seen sitting at edge of bed mildly dyspneic after walking the full length of the [facility] shower area to his room about 200 feet using front wheeled walker. Mental Status: Alert and oriented x4 Pain: 0/10 ROM: Right Upper Extremity: Shoulder Flexion WFL. Shoulder abduction WFL. Elbow flexion WFL. Wrist flexion WFL. Functional opening and closing of hand WFL. Left Upper Extremity: Shoulder Flexion WFL. Shoulder abduction WFL. Elbow flexion WFL. Wrist flexion WFL. Functional opening and closing of hand WFL. Right Lower Extremity: Hip flexion WFL. Hip abduction WFL. Knee flexion WFL. Ankle dorsiflexion WFL. Ankle plantarflexion WFL. Left Lower Extremity: Hip flexion WFL. Hip abduction WFL. Knee flexion WFL. Ankle dorsiflexion WFL. Ankle plantarflexion WFL. Strength: Right Upper Extremity: Shoulder flexors 4/5. Shoulder abductors 4/5. Elbow flexors 4/5. Elbow extensors 4/5. Clinical Informatics Director strong. Left Upper Extremity: Shoulder flexors 4/5. Shoulder abductors 4/5. Elbow flexors 4/5. Elbow extensors 4/5. Clinical Informatics Director strong. Right Lower Extremity: Hip flexors 4/5. Hip abductors 4/5. Knee flexors 4/5. Knee extensors 4/5. Ankle dorsiflexors 4/5. Ankle plantarflexors 4/5. Left Lower Extremity:Hip flexors 4/5. Hip abductors 4/5. Knee flexors 4/5. Knee extensors 4/5. Ankle dorsiflexors 4/5. Ankle plantarflexors 4/5. Sensation: Intact as to pain and pressure on bilateral lower extremities. Bed Mobility/Transfers: Rolling independent Supine to sit independent Sit to supine independent Sit to stand supervision Stand to sit supervision Bed to chair supervision Chair to bed supervision Gait: Patient was able to tolerate level surface ambulation per his report with nursing staff and OT from [facility] area to his room, Room 230 using front wheeled walker with SBA. Balance: Static Sitting: Normal Dynamic Sitting: Normal Static Standing: Good Dynamic Standing: Fair Special Tests: Mobility Limitations Standardized Measure [facility] AM-PAC 6 clicks Basic Mobility Inpatient Short Form: Raw Score: 23 CMS Score: 11% deficit 30?second chair rice score of 12 signifying good lower extremity strength and low risk for falls. Informed Consent/Education: Patient instructed in purpose of PT consult and plan of care. Assessment: Patient presents with clinical signs and symptoms consistent with current/admitting diagnoses that have resulted to mobility limitations, gait instability, generalized weakness, and impairment of motor control as demonstrated by the following impairment level findings: 1. Decreased strength to B LE major muscle groups 2. Impaired standing balance 3. Impaired activity tolerance Impairments are contributing to the following functional limitations: 1. Inability to safely ambulate without assistive device and physical assistance 2. Increase completion time for mobility ADL performance 3. Increased fall risk 4. Inability to negotiate steps alone safely Patient is assessed as a 82314 moderate complexity based on the following: History: Patient is a 78-year-old male diagnosed with COPD exacerbation, bullous emphysema, AAA and lung nodule. CF Examination: Demonstrable impairment in strength, balance, and range of motion with underlying impairments and functional limitations as documented above Presentation: Stable Decision Makin moderate complexity Goals: Goals X1 week 1. Stand-Sit independent 2. Bed-Chair independent 3. Chair-Bed independent 4. Independent gait on level surface with use of least restrictive device for at least 300 feet without report of pain nor dyspnea 5. Independent stair negotiation while holding onto bilateral rails for at least 5 steps without report of pain nor dyspnea 6. Independent with home exercise program 7. Normal static and dynamic standing balance/tolerance Plan of Care/Treatment Plan: 1-2x/day, 7 days/week x 1 week. Plan of care has been reviewed with the TIN ASSORTER providing the service under Physical Therapy direction. Initiate Physical Therapy intervention for strengthening, bed mobility, transfers, gait, stairs, balance training, use of assistive device. DISCHARGE RECOMMENDATIONS: Patient will benefit from home health PT services in order to progress mobility level using least restrictive assistive ambulatory device/using no device, assess home safety, identify additional equipment needs, and establish a functional maintenance program that will increase ability of patient to remain at home. TREATMENT CODE/TIME: 26032 x 33 minutes beginning at 10:02 AM. Thank you very much for this referral. Becky Silver PT, DPT, CLT [facility]
--- NOTE | 2019-01-15 17:19 | HHF2F_ITS ---
1. Encounter Date and Reason I certify that SANDRO AGUIRRE was seen by Nadia Daniels on 01/15/19 and that I had a [id number] encounter with this patient that meets the physician face to face encounter requirements. 2. Clinical Findings Supporting Skilled Need and Homebound Status I certify that home health services are medically necessary, include either intermittent long-term and/or physical/speech therapy, and that this patient is homebound in that absences from the home require considerable and taxing effort and are infrequent or of short duration, or are attributable to the need to receive medical care. [X] (a) Attached documentation from encounter provides clinical findings supporting skilled need and homebound status (including what assistance patient requires to leave the home). The encounter with the patient was in whole, or in part, for the following medical condition, which is the primary reason for home health care: COPD EXACERBATION Intermediate: severe COPD Physical Therapy: eval and treat Occupational Therapy: eval and treat RAGS LABORER: evaluate for resources in the community which might benefit the patient Palliative Care referral: severe COPD Homebound: unable to leave home without assistance 3. Certification and Authentication I certify that I composed the above information based on my clinical judgement relating to this patient's medical condition and, if applicable, clinical findings communicated to me by the NPP or inpatient physician who performed the Home Health Referral. All further orders will be obtained through _Dr Olga Paiz (Community Based Physician - PCP)
--- NOTE | 2019-01-15 17:43 | CMDISCH_ITS ---
- If Service Date Differs Date of service: 01/15/19 Time of Service: 17:43 LACE Index Scoring Tool - Questions: Length of Stay (in days): 4 - 6 Acuity (Admit via E.D.?): Yes Comorbidities: Chronic Pulmonary Disease E.D. Visits: 1 - Answers: Total Score: 10 Risk of Readmission: High Risk Care Management Discharge Reason for Hospitalization: COPD Exacerbation Discharge Plan: Ross will be discharged home with new services of nursing and [employer]. He will follow up with his PCP and discharge plan of care. [facility] staff will follow up re: necessary electrical repairs to enable Ross to have his Life 2000 machine. He will transport via private vehicle with . Patient/Family Education Needs: Discharge plan, limitations, follow up plan, Ask Me Three. Services Needed at Discharge: Home Health Care Services, Oxygen Therapy
--- NOTE | 2019-01-16 15:46 | PT.INDS ---
Date of service: 01/16/19 PT Notes Inpatient Physical Therapy Discharge Summary Dates: 01/16/2019 Dates of Service: 01/15/2019 only Referring Doctor: Nadia Daniels MD PT Orders: PT CONSULT: Eval/treat Precautions: Fall. Standard. Activity as tolerated Patient Profile/Admitting Diagnosis: Patient is a 78-year-old male with past medical history significant for chronic obstructive pulmonary disease and hypercholesterolemia who presented to the ED on 01/10/2019 with chief complaints of dyspnea and generalized weakness. Patient was diagnosed with COPD exacerbation, bullous emphysema, AAA and lung nodule. PMHX: Medical History BPH (benign prostatic hyperplasia) (Chronic) COPD (chronic obstructive pulmonary disease) (Chronic) GERD (gastroesophageal reflux disease) (Chronic) Hypercholesteremia (Acute) Surgical History (Updated 01/10/19 @ 12:35 by Florencio Zaidi DO) S/P AAA repair (Acute) Social History/Home Situation: Gordo lives in a home significant other with 2 step ups to enter with rails on both sides. He is independent with all aspects of ADLs with the use of FWW. Current Functional Limitations: Need for an assistive device for all mobility ADL performance Equipment Owned/DME: FWW, shower bench, BPAP Subjective: Patient is agreeable to a PT consult. He hopes to go home as soon as he is safe to do so today. He states that he has a very good support at home between his son and his significant other. Objective: General Observation: Patient is seen sitting at edge of bed mildly dyspneic after walking the full length of the [employer] shower area to his room about 200 feet using front wheeled walker. Mental Status: Alert and oriented x4 Pain: 0/10 ROM: Right Upper Extremity: Shoulder Flexion WFL. Shoulder abduction WFL. Elbow flexion WFL. Wrist flexion WFL. Functional opening and closing of hand WFL. Left Upper Extremity: Shoulder Flexion WFL. Shoulder abduction WFL. Elbow flexion WFL. Wrist flexion WFL. Functional opening and closing of hand WFL. Right Lower Extremity: Hip flexion WFL. Hip abduction WFL. Knee flexion WFL. Ankle dorsiflexion WFL. Ankle plantarflexion WFL. Left Lower Extremity: Hip flexion WFL. Hip abduction WFL. Knee flexion WFL. Ankle dorsiflexion WFL. Ankle plantarflexion WFL. Strength: Right Upper Extremity: Shoulder flexors 4/5. Shoulder abductors 4/5. Elbow flexors 4/5. Elbow extensors 4/5. Walnut Dehydrator Operator strong. Left Upper Extremity: Shoulder flexors 4/5. Shoulder abductors 4/5. Elbow flexors 4/5. Elbow extensors 4/5. Walnut Dehydrator Operator strong. Right Lower Extremity: Hip flexors 4/5. Hip abductors 4/5. Knee flexors 4/5. Knee extensors 4/5. Ankle dorsiflexors 4/5. Ankle plantarflexors 4/5. Left Lower Extremity:Hip flexors 4/5. Hip abductors 4/5. Knee flexors 4/5. Knee extensors 4/5. Ankle dorsiflexors 4/5. Ankle plantarflexors 4/5. Sensation: Intact as to pain and pressure on bilateral lower extremities. Bed Mobility/Transfers: Rolling independent Supine to sit independent Sit to supine independent Sit to stand independent Stand to sit independent Bed to chair independent Chair to bed independent Gait: Patient was able to tolerate level surface ambulation without an assistive device for 200 feet requiring SBA with 1 seated rest and one standing rest. He was able to negotiate negotiate three 4 inch steps while holding onto bilateral rails with step over step pattern requiring supervision assist Balance: Static Sitting: Normal Dynamic Sitting: Normal Static Standing: Good Dynamic Standing: Fair Special Tests: Mobility Limitations Standardized Measure [facility] AM-PAC 6 clicks Basic Mobility Inpatient Short Form: Raw Score: 23 CMS Score: 11% deficit 30?second chair rise score of 12 signifying good lower extremity strength and low risk for falls. Goals: Goals X1 week 1. Stand-Sit independent MET 2. Bed-Chair independent MET 3. Chair-Bed independent MET 4. Independent gait on level surface with use of least restrictive device for at least 300 feet without report of pain nor dyspnea NOT MET 5. Independent stair negotiation while holding onto bilateral rails for at least 5 steps without report of pain nor dyspnea NOT MET 6. Independent with home exercise program MET 7. Normal static and dynamic standing balance/tolerance NOT MET DISCHARGE RECOMMENDATIONS: Patient will benefit from home health PT services in order to progress mobility level using least restrictive assistive ambulatory device/using no device, assess home safety, identify additional equipment needs, and establish a functional maintenance program that will increase ability of patient to remain at home. TREATMENT CODE/TIME: NC Thank you very much for this referral. Becky Silver PT, DPT, CLT [facility]
== END 2019-01-15 17:38 | disposition home health service (06) | DRG 190 ==
LOC: ER 15:09 → MS 16:14
PROVIDERS: Admitting Provider Internal Medicine; Emergency Provider Student in an Organized Health Care Education/Training Program; PCP Nurse Practitioner Family; Visit Provider Internal Medicine
DX: J44.1 Chronic obstructive pulmonary disease with (acute) exacerbation (principal); J96.22 Acute and chronic respiratory failure with hypercapnia; J96.21 Acute and chronic respiratory failure with hypoxia; J43.8 Other emphysema; R91.1 Solitary pulmonary nodule; K21.9 Gastro-esophageal reflux disease without esophagitis; Z99.81 Dependence on supplemental oxygen; Z22.39 Carrier of other specified bacterial diseases; I71.4 Abdominal aortic aneurysm, without rupture; N40.0 Benign prostatic hyperplasia without lower urinary tract symptoms; Z87.891 Personal history of nicotine dependence; H35.30 Unspecified macular degeneration; R07.9 Chest pain, unspecified
CPT/HCPCS: 36410; 36415; 71250; 71275; 80048; 80053; 82805; 84145; 93005; 94618; 94640; 97162; 97165; 97530; 97535; 99222; 99232; 99239; 99285; J1650; 36600; 83735; 83880; 84443; 84484; 85025; 85379; 85610; 85730; 93010; J1941; J2930; J3490; J7512; J7620; J7626

== ENCOUNTER 2020-11-30 00:46 | Outpatient (CLI) | payer MEDICARE, MEDICAID, SELFPAY ==
--- NOTE | 2020-11-30 | DI.CT_ITS ---
Exam(s) CT CHEST WO EXAM: CT CHEST WO CLINICAL HISTORY: BILAT LUNG CA,C34.91,C34.92,RECURRENCE. TECHNIQUE: Imaging protocol: Axial computed tomography images were obtained and coronal and sagittal reformatted images were created and reviewed. COMPARISON: CT CT CHEST WO from 01/10/[address] CHEST PE CTA from 01/10/[address] CHEST PE CTA from 01/10/2019 FINDINGS: The examination is limited due to patient motion artifact. Tracheobronchial tree: Patent where visualized. Pulmonary parenchyma: There is a new 1.1 x 0.7 cm nodule in the right upper lobe. The right lower lo be nodule measures 1.2 x 1 cm. This compares to 1.2 x 0.6 cm. The left upper lobe nodule measures 0 .8 cm compared with 0.7 cm on the prior examination. Marked centrilobular emphysematous changes are present. No focal consolidating infiltrates. Mediastinum and Raquel: No dominant adenopathy or fluid collection. Small hiatal hernia. Pleura: No effusion or pneumothorax. Heart: The heart is not dilated. Mild coronary artery calcification. No pericardial effusion. Aorta: Thoracic aorta non-dilated. Mild atherosclerosis. Upper abdomen: Pneumobilia is again seen. Stable right renal cysts. Status post cholecystectomy. Lymph nodes: Within normal limits. Thyroid gland: Unremarkable. Soft tissues: Unremarkable. Bones:Within normal limits for the patient's age. IMPRESSION: 1. New 1.1 x 0.7 cm nodule in the right upper lobe. Metastatic disease/primary neoplasm cannot be ex cluded. PET-CT scan may be considered for further evaluation. 2. Slight interval increase in size of the right lower lobe pulmonary nodule. Stable left upper lobe pulmonary nodule. 3. Marked emphysematous changes in the lungs. RADIATION DOSE DELIVERED: 509.86mGy.cm Total DLP 509.86mGy.cm Total DLP DATA REPOSITORY: All CT scans at this facility are submitted to the National Radiology Data Registry (NRDR) Dose Index Registry (DIR) with the [employer] ([employer]). RADIATION OPTIMIZATION: All CT scans at this facility use at least one of these dose optimization te chniques: automated exposure control; mA and/or kV adjustment per patient size (includes targeted exa ms where dose is matched to clinical indication); or iterative reconstruction.
== END 2020-11-30 01:06 ==
PROVIDERS: PCP Nurse Practitioner Family; Visit Provider Nurse Practitioner
DX: C34.91 Malignant neoplasm of unspecified part of right bronchus or lung (principal); C34.92 Malignant neoplasm of unspecified part of left bronchus or lung; R91.8 Other nonspecific abnormal finding of lung field; J43.8 Other emphysema
CPT/HCPCS: 71250

== ENCOUNTER 2021-10-12 02:06 | Outpatient (CLI) | payer MEDICARE, MEDICAID, SELFPAY ==
--- NOTE | 2021-10-12 | DI.CT_ITS ---
Exam(s) CT CHEST WO EXAM: CT CHEST WO CLINICAL HISTORY: S/P SBRT NODULE RUL/ELIZABETH,STABLE NODULE RLL, EVAL CHANGE, LUNG CA, C34.11. TECHNIQUE: Imaging protocol: Axial computed tomography images were obtained and coronal and sagittal reformatted images were created and reviewed. CONTRAST MATERIAL: Noncontrast COMPARISON: CT CT CHEST WO from 11/30/2020 FINDINGS: Pulmonary parenchyma: Suture material right upper lobe. Question of slight interval decrease in size of previously noted posterior right upper lobe nodule now measuring 9 x 6 millimeters. Right lower lobe nodule is now measured at 11 x 9 millimeters. Stable nodular density left upper lobe. Emphysema: Severe emphysematous changes with large bulla in the right upper lobe. Tracheobronchial tree: Patent. Pleura: No effusion or pneumothorax. Heart: The heart is not dilated. The coronary arteries show mildcalcifications. Aorta: Thoracic aorta non-dilated. No significantatherosclerotic changes. Lymph nodes: Within normal limits. Bones: Mild degenerative changes are seen. Stable mild midthoracic compression fractures. No lyti c or blastic lesions. Upper abdomen: Biliary air. Cysts upper pole right kidney. IMPRESSION: Question of slight interval decrease in size of pulmonary nodules versus differences due to measureme nt error. No new abnormalities. Severe emphysematous changes. RADIATION DOSE DELIVERED: 520mGy.cm Total DLP 520mGy.cm Total DLP DATA REPOSITORY: All CT scans at this facility are submitted to the National Radiology Data Registry (NRDR) Dose Index Registry (DIR) with the [employer] ([employer]). RADIATION OPTIMIZATION: All CT scans at this facility use at least one of these dose optimization te chniques: automated exposure control; mA and/or kV adjustment per patient size (includes targeted exa ms where dose is matched to clinical indication); or iterative reconstruction.
== END 2021-10-12 02:26 ==
PROVIDERS: PCP Nurse Practitioner Family; Visit Provider Radiology Radiation Oncology
DX: C34.11 Malignant neoplasm of upper lobe, right bronchus or lung (principal); J43.8 Other emphysema
CPT/HCPCS: 71250